=== PATIENT | female | born 1970 | race Caucasian/White ===

== ENCOUNTER 2023-11-19 05:21 | Emergency (ER) | payer OTHER, SELFPAY ==
[2023-11-19 05:22] VITALS: BP 165/86; PULSE 85; RESP 17; TEMP 36.4; O2SAT 98; BMI 33.7
--- NOTE | 2023-11-19 06:24 | ED.RN ---
PT GIVEN SNACK ON ARRIVAL FOR BLOOD SURGAR.
[2023-11-19 06:34] LABS: Bedside Glucose 71 mg/dL (74-106)
[2023-11-19 06:41] LABS: Bedside Glucose 145 mg/dL (74-106)
--- NOTE | 2023-11-19 07:21 | EDS_ITS ---
HPI History of Present Illness Chief Complaint: Hypoglycemia Informant: patient Narrative Narrative: 53-year-old diabetic female presenting to the emergency room chief complaint of hypoglycemia. Patient states that on Saturday she took a new diabetic medication that is a once weekly shot. She states she had difficulty maintaining her blood sugar through the night. She is on both short and long- acting insulin as well as metformin. The patient states that she has not really had this problem in the past. She sees endocrinology through the [facility]. She states that she was having problems thinking clearly and forming her words and knew something was not right. [facility] Medical History Diabetes type 2, controlled Hypothyroidism Rheumatoid arteritis Allergy/AdvReac Type Severity Reaction Status Date / Time potato Allergy Mild Nausea Verified 11/19/23 05:27 Social History Smoking Status: Never smoker ROS ROS ED Constitutional Constitutional ED: Denies chills, fever(s), sweats or weight loss Eyes Eyes: Denies change in vision or diplopia ENT ENT ED: Denies ear pain, rhinorrhea or sore throat Cardiovascular Cardiovascular: Denies chest pain, orthopnea, palpitations or racing heartbeat Respiratory/Chest Respiratory/Chest: Denies cough, dyspnea or orthopnea Gastrointestinal Gastrointestinal: Denies abdominal pain, diarrhea, nausea or vomiting Genitourinary Genitourinary ED: Denies dysuria, hematuria or urinary frequency Musculoskeletal Musculoskeletal: Denies arthralgias or myalgias Integumentary Denies abscess or rash Neurologic Neurologic: Reports other Details: Difficulty with word finding slight confusion ; Denies headache(s) or weakness Psychiatric Psychiatric: Denies anxiety, depression, suicidal ideation or suicidal thoughts Endocrine Endocrinology: Denies polydipsia, polyphagia or polyuria Allergic/Immunologic Allergic/Immunologic ED: Denies mouth swelling, tongue swelling or urticaria EXAM Physical Exam Const Vital Signs: 11/19/23 05:22 11/19/23 05:24 Temperature 97.6 F L Temperature Source Temporal Pulse Rate 85 Respiratory Rate 17 Respiratory Effort Normal Respiratory Pattern Normal Blood Pressure 165/86 H Blood Pressure Mean 112 Pulse Ox 98 Oxygen Delivery Method Room Air Positive well nourished and well developed General Appearance ED: well developed HEENT Reports normocephalic, head/scalp atraumatic and moist mucous membranes Eyes PERRL and EOMs intact bilaterally Neck no lymphadenopathy, supple and no JVD Resp normal respiratory effort and clear to auscultation bilaterally Cardio regular rate, regular rhythm and no murmurs GI normal to inspection, nondistended, normoactive bowel sounds and non-tender Palpation: soft Back/Spine no CVA tenderness and normal ROM Extremity normal to inspection General Extremety ED: Negative for edema General Extremity: Negative for edema Neuro oriented x3 and CN's II-XII intact bilaterally Neuro Narrative: NIH 0 Sensorium / Orientation: alert Motor Exam: strength 5/5 throughout Psych mental status grossly normal Mood & Affect: Negative for depressed or tearful Skin no rashes or lesions noted and no wounds MDM MDM MDM Narrative Medical decision making narrative: Patient's blood sugars improving with oral ingestions. Patient is going to discontinue her short acting insulin and decrease her metformin. She will allow for some permissive hyperglycemia until she can discuss with her ocular care aide. Lab Data Labs: Laboratory Results - last 24 hr 11/19/23 11/19/23 05:26 06:24 POC Glucose 71 L 145 H Discharge Plan Triage Chief Complaint: Hypoglycemia ED Provider: Bernardino Garcia Dx/Rx/DC Orders Clinical Impression: Diabetic hypoglycemia Primary Care Provider: Shanique Bacon NP Referrals: Shanique Bacon NP, GENERAL [employer]UDIES PROGRAM CHAIR-C [Primary Care Provider] - As Needed Activity Restrictions/Additional Instructions: Please contact your ocular care aide. In the interim I recommend allowing some degree of passive hyperglycemia. You may try having a higher protein meal before bedtime. I do think it is reasonable to decrease your metformin today. Disposition Disposition: Home, Self Care Discharge Date/Time: 11/19/23 06:38
--- OUTSIDE RECORDS SUMMARY | 2023-11-20 19:10 | XMS RPT_ITS | CCD ---
Author Name Unknown Address [address] [place] [address] Organization [facility] Care Team Providers Care Cryptologist Name Role Phone Arleen TAPE WEAVER.Jenniffer DUBON Primary Care Provider JENNIFFER ALFONSO Attending Unavailable JENNIFFER ALFONSO Primary Care Unavailable JENNIFFER ALFONSO Primary Care Unavailable PILI RICCI Referring Unavailable JENNIFFER ALFONSO Primary Care Unavailable PILI RICCI Attending Unavailable Allergies Allergy Classification Reported Allergen(s) Allergy Type Date of Onset Reaction(s) Facility (7 sources) Erythromycin; Translations: [ERYTHROMYCIN] Drug Allergy 09-11-2011 Other: See Comments [facility] Work Phone: (3 sources) metFORMIN; Translations: [METFORMIN] Drug Allergy 09-25-2013 Diarrhea [facility] Work Phone: (7 sources) Neomycin; Translations: [NEOMYCIN] Drug Allergy 09-25-2013 Rash [facility] Work Phone: (7 sources) venlafaxine; Translations: [VENLAFAXINE] Drug Allergy 01-05-2014 Other: See Comments [facility] Medications Completed/Discontinued Medications Medication Drug Class(es) Dates Sig (Normalized) Sig (Original) 200 actuat albuterol 0.09 mg/actuat metered dose inhaler (1 source) beta2-Adrenergic Agonist Start: 09-25-2013 End: 10-10-2023 take 1-2 puff(s) by inhalation four times daily as needed for obesity albuterol 90 mcg/actuation aero Indications: Type II or unspecified type diabetes mellitus without mention of complication, uncontrolled , Need for prophylactic vaccination against Streptococcus pneumoniae (pneumococcus) , Obesity (BMI 30.0-34.9) , Health education/counseling Inhale 1-2 Puffs as instructed four times daily as needed. 0 09/25/2013 10/10/2023 Discontinued Problems Active Problems Problem Classification Problem Date Documented Date Episodic/Chronic Asthma (7 sources) Intermittent asthma; Translations: [Mild intermittent asthma, uncomplicated] Onset: 10-10-2023 10-10-2023 Chronic Diabetes mellitus without complication (8 sources) Type 2 diabetes mellitus without complication; Translations: [Type 2 diabetes mellitus without complications] Onset: 09-11-2011 10-10-2023 Chronic Esophageal disorders (2 sources) Gastroesophageal reflux disease without esophagitis; Translations: [Gastro-esophageal reflux disease without esophagitis] Onset: 10-10-2023 10-10-2023 Chronic Essential hypertension (2 sources) Essential hypertension; Translations: [Essential (primary) hypertension] Onset: 10-10-2023 10-10-2023 Chronic Immunizations and screening for infectious disease (9 sources) Patient encounter status; Translations: [Encounter for immunization] Onset: 10-10-2023 10-10-2023 Episodic Nutritional deficiencies (2 sources) Vitamin D deficiency; Translations: [Vitamin D deficiency, unspecified] Onset: 10-10-2023 10-10-2023 Chronic Nutritional deficiencies (2 sources) Vitamin B deficiency; Translations: [Vitamin B deficiency, unspecified] Onset: 10-10-2023 10-10-2023 Episodic Other endocrine disorders (6 sources) Polycystic ovary syndrome; Translations: [Polycystic ovarian syndrome] Onset: 09-11-2011 10-10-2023 Chronic Other endocrine disorders (1 source) Polycystic ovarian syndrome; Translations: [PCOS (polycystic ovarian syndrome)] Onset: 09-11-2011 Chronic Other nutritional; endocrine; and metabolic disorders (5 sources) Obese class I; Translations: [Obesity, unspecified] Onset: 09-25-2013 09-25-2013 Chronic Other screening for suspected conditions (not mental disorders or infectious disease) (5 sources) Cancer cervix screening status; Translations: [Encounter for screening for malignant neoplasm of cervix] Onset: 10-10-2023 10-10-2023 Episodic Rheumatoid arthritis and related disease (7 sources) Rheumatoid arthritis; Translations: [Rheumatoid arthritis, unspecified] Onset: 10-10-2023 10-10-2023 Chronic Thyroid disorders (7 sources) Hypothyroidism; Translations: [Hypothyroidism, unspecified] Onset: 09-11-2011 10-10-2023 Chronic Past or Other Problems Problem Classification Problem Date Documented Da te Episodic/Chronic Other skin disorders (5 sources) Hirsutism; Translations: [Hirsutism] Onset: 09-11-2011 09-11-2011 Episodic Results Test Name Value Interpretation Reference Range Facil ity Vital Signs Date Time Vital Sign Value Performing Clinician Joanna marcus 10-10-2023 14:52-0500 Body height 165.1 cm Jenniffer Alfonso TAPE WEAVER.JAGDISH Work Phone: [facility] 10-10-2023 14:52-0500 Body temperature 98.2 [degF] Jenniffer Alfonso TAPE WEAVER[employer] Work Phone: [facility] 10-10-2023 14:52-0500 Body weight 87 kg Jenniffer Alfonso TAPE WEAVER[employer] Work Phone: [facility] 10-10-2023 14:52-0500 Diastolic blood pressure 72 mm[Hg] Jenniffer Alfonso TAPE WEAVER[employer] Work Phone: [facility] 10-10-2023 14:52-0500 Heart rate 91 /min Jenniffer Alfonso TAPE WEAVER[employer] Work Phone: [facility] 10-10-2023 14:52-0500 Respiratory rate 18 /min Jenniffer Alfonso TAPE WEAVER[employer] Work Phone: [facility] 10-10-2023 14:52-0500 SaO2% (BldA) [Mass fraction] 98 % Jenniffer Alfonso TAPE WEAVER[employer] Work Phone: [facility] 10-10-2023 14:52-0500 Systolic blood pressure 122 mm[Hg] Jenniffer Arleen TAPE WEAVER[employer] Work Phone: [facility] Encounters Encounter Date Encounter Type Care Provider Facility Start: 11-01-2023 Telephone encounter Pili nassar TAPE WEAVER.JAGDISH Work Phone: Endocrinology Plan of Treatment Date Care Activity Detail Author Start: 10-30-2024 Hepatitis B screening Urine Al bumin:Creatinine Ratio [facility] Start: 10-30-2024 Hepatitis B surface antibody level LDL Cholesterol [facility] Start: 10-10-2024 Annual PCP Team Conference Manager zackery Disease Visit Annual PCP Team Chronic Disease Visit [facility] Start: 10-10-2024 Hepatitis B Vaccine (1 of 3 - 3-dose series) Hepatitis B Vaccine (1 of 3 - 3-dose series) [facility] Immunizations Immunization Date Immunization Notes Care Provider Fa cility 10-10-2023 pneumococcal Conjuga te, unspecified formulation Jenniffer Alfonso TAPE WEAVER[employer] Work Phone: [facility] Work Phone: 10-10-2023 pneumococcal (PCV20) vaccine, 20 valent (PREVNAR 20) Jenniffer Alfonso TAPE WEAVER.[employer] Work Phone: [facility] 09-25-2013 pneumococcal polysaccharide vaccine, 23 valent Jenniffer Alfonso TAPE WEAVER.[employer] Work Phone: [facility] Work Phone: Payers Date Payer Category Payer Unknown MMO MMO [employer] PPO [id number] 2023-Present [phone] [address] [place] [address] PPO [id number] 2023 Unknown [id number] Social History Date Type Detail Facility Start: 09-11-2011 [facility] Work Phone: History of tobacco use Current smoker [facility] Work Phone: Start: 09-11-2011 Tobacco use and exposure Smokeless tobacco non-user [facility] Work Phone: Start: 10-10-2023 End: 11-01-2023 Alcohol intake Current drinker of alcohol (finding) [facility] Start: 10-10-2023 End: 10-30-2023 History of Social function [facility] Start: 10-10-2023 End: 10-30-2023 Tobacco use panel [facility] National Score (1-100), lower number is lower risk 99 [facility] Start: 1970 Sex Assigned At Not on file C [facility] Medical Equipment Procedure Code Equipment Code Equipment Origin al Text Equipment Identifier Dates Start: 09-11-2011 End: 10-10-2023 Note 10-31-2023 Telephone Encounter - Coni Pedraza - 10/31/2023 4:12 PM EST Note Date & Type Note Facility 10-31-2023 Miscellaneous Notes Formattin g of this note might be different from the original. Phoned [facility] pharmacy due to conflicting messages regarding prescriptions. Patients insulin did not require a PA as noted in another message but was covered under a different formulary. Pharmacist changed to covered med. Prior Authorization was completed for scott. Cover My Meds tate [id number] Last office visit notes faxed to [facility] at that time. Coni Pedraza MA documented in this encounter [facility] Note 10-31-2023 Telephone Encounter - Nerissa Donaldson RN - 10/31/2023 11:51 AM EST Note Date & Type Note Facility 10-31-2023 Miscellaneous Notes Formattin g of this note might be different from the original. message sent to Pt. Nerissa Donaldson RN October 31, 2023 11:51 AM documented in this encounter [facility] Progress note 10-30-2023 Note Date & Type Note Facility 10-30-2023 Note HNO ID: [id number] Author: Pili Ricci APRN.[employer] Service: ? Author Type: Nurse Practitioner Type: Progress Notes Filed: 10/30/2023 8:49 AM Note Text: NEW CONSULT OFFICE PROGRESS NOTE Reason for Consultation: DM Type 2 Referring Physician: SELF My final recommendations will be communicated back to the requesting physician by way of shared Medical record or letter via [place] mail. HISTORY OF PRESENT ILLNESS; Henrietta Brewer is a 53 year old FEMALE is presenting as a new patient to me regarding DM Type 2. [place] the past 8 [place]. [place] 20[place] Is still re-establishing her care with new providers. She was initially diagnosed with diabetes in 2008. 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 The patient has no known microvascular complications of diabetes. Henrietta has no know macrovascular complications of diabetes.. DM Education Yes Knows how to carb count Yes DIETARY HISTORY: Breakfast: skip and coffee w creamer and splenda Lunch variable, wrap or salad (at school, works in school) Dinner proteins, (40-45 grams of carbs per meal) whole wheat pasta, or brown rice, sweet potatoes Snacks none - occ mANDm Drinks water and coffee Exercise: work, 15k steps a day CURRENT DM MEDS AMARYL 2 mg 1 tab BID (6 mg daily) METFORMIN 1000 BID TRESIBA 30 units daily (pt increased to 45 units in the past 3 weeks) TRULICITY 3 mg weekly injection SMBG Type of Monitor: Other Frequency of Monitorin times a day BG Values: 200-400 during illness Values over past week: Highest ; Lowest Hypoglycemia: no Diet: Low carbohydrate Exercise: walks 15k steps daily during work DM REVIEW OF SYSTEMS Last Eye Exam : due Last Podiatry Exam: due Cardiorespiratory: negative, denies chest pain, pressure Claudication: no Dyslipidemia: Yes, controlled on medication High Blood Pressure: Yes, controlled on medication CURRENT LABS NONE - ordered not completed by patient. TO DO ON WAY OUT TODAY PAST MEDICAL HISTORY Diagnosis Date Asthma Ex - Smoker Hypothyroidism Infertility, female Daughter birthed by surrogate female Leg cramps RA (rheumatoid arthritis) (HCC) On EFFEXOR / Pt. indicates side effect of drug. (+) Family history of RA Stress bladder incontinence, female Type II or unspecified type diabetes mellitus without mention of complication, not stated as uncontrolled PAST SURGICAL HISTORY Procedure Laterality Date NONE FAMILY HISTORY Problem Relation Age of Onset Ovarian cancer Mother 20 Hypertension Father Hypertension Brother Diabetes Maternal Grandmother Heart Maternal Grandmother No Known Problems Maternal Grandfather Heart Paternal Grandmother Diabetes Paternal Grandmother Diabetes Paternal Aunt Arthritis Other Rheumatoid Arthritis in family members other (hypothy [Other]) Other Social History Tobacco Use Smoking status: Former Smokeless tobacco: Never Substance Use Topics Alcohol use: Yes Current Outpatient Medications Medication Sig levothyroxine (SYNTHROID) 100 mcg tablet Take 100 mcg by mouth daily before breakfast. valsartan (DIOVAN) 80 mg tablet Take 80 mg by mouth once daily. atorvastatin (LIPITOR) 20 mg tablet Take 20 mg by mouth once daily. glimepiride (AMARYL) 2 mg tablet Take 2 mg by mouth two times a day with meals. metFORMIN (GLUCOPHAGE) 1,000 mg tablet Take 1,000 mg by mouth two times a day with meals. insulin degludec (TRESIBA FLEXTOUCH U-100) 100 unit/mL (3 mL) injection pen Inject subcutaneously daily at bedtime. 300 international unit(s) pen 30units methotrexate 2.5 mg tablet Take 7.5 mg by mouth two times a week. folic acid 1 mg tablet Take 1 mg by mouth once daily. hydrOXYchloroQUINE (PLAQUENIL) 200 mg tablet Take by mouth once daily. celecoxib (CELEBREX) 200 mg capsule Take 200 mg by mouth once daily. tacrolimus IR (PROGRAF) 1 mg capsule Take 1 mg by mouth two times a day. dulaglutide (TRULICITY) 3 mg/0.5 mL pen injector Inject 3 mg subcutaneously one time a week. Dexlansoprazole (DEXILANT) 30 mg CpDM Take 1 capsule by mouth once daily. No current facility-administered medications for this visit. ALLERGIES Allergen Reactions E-Mycin [Erythromyc* Other: See Comments Itching, stomach upset Effexor [Venlafaxin* Other: See Comments Onset of arthritis Metformin Diarrhea Incapacitating Diarrhe and cramping Neomycin Rash REVIEW OF SYSTEMS - POSITIVES IN BOLD GENERAL:No weight loss, malaise or fevers HEENT:Negative for frequent (more content not included)... [facility] Progress note 10-10-2023 Note Date & Type Note Facility 10-10-2023 Note HNO ID: [id number] Author: Jenniffer Aflonso APRN.[employer] Service: ? Author Type: Nurse Practitioner Type: Progress Notes Filed: 10/10/2023 11:06 PM Note Text: This note was created using FIXOriter. Subjective Henrietta Brewer is a 53 year old female here today to establish care. PMH DM, HTN, HLD, hypothyroidism, RA, asthma, PCOS. [place] from [place] the [place]. She needs referral to specialists. DM: Type 2, Dx 2007. States she was having extreme thrist. Reports she was noted had A1C of 13.4%. states she was started insulin immediately. She is taking Trulicity 3 mg weekly, Tresiba 30 units daily, metformin 1000 mg twice, glimepiride 2 mg twice a day. She needs referral to Endo Hypothyroidism: Dx 2007-. She is taking levothyroixine 100 mcg. She takes this on an empty stomach. RA: Dx 2008, chronic, stable she is taking Plaquenil, methotrexate and celebrex for this. Asthma: Dx as a child. She reports it has been controlled. She uses albuterol as needed. Reports at most once every 2-3 months. HLD: she is taking atorvastatin 20 mg daily. Tolerates well. HTN: she is taking valsartan 80 mg daily. Preventative: she would like her pneumonia vaccine today. Reports she had bone density in [place]. Reports normal. She has never had colonoscopy. ALLERGIES Allergen Reactions E-Mycin [Erythromyc* Other: See Comments Itching, stomach upset Effexor [Venlafaxin* Other: See Comments Onset of arthritis Metformin Diarrhea Incapacitating Diarrhe and cramping Neomycin Rash Current Outpatient Medications Medication Sig Dispense Refill levothyroxine (SYNTHROID) 100 mcg tablet Take 100 mcg by mouth daily before breakfast. valsartan (DIOVAN) 80 mg tablet Take 80 mg by mouth once daily. atorvastatin (LIPITOR) 20 mg tablet Take 20 mg by mouth once daily. sitaGLIPtin phosphate (JANUVIA) 100 mg tablet Take 100 mg by mouth once daily. glimepiride (AMARYL) 2 mg tablet Take 2 mg by mouth two times a day with meals. metFORMIN (GLUCOPHAGE) 1,000 mg tablet Take 1,000 mg by mouth two times a day with meals. insulin degludec (TRESIBA FLEXTOUCH U-100) 100 unit/mL (3 mL) injection pen Inject subcutaneously daily at bedtime. 300 international unit(s) pen 30units dulaglutide (TRULICITY) 3 mg/0.5 mL pen injector Inject 3 mg subcutaneously one time a week. methotrexate 2.5 mg tablet Take 7.5 mg by mouth two times a week. folic acid 1 mg tablet Take 1 mg by mouth once daily. hydrOXYchloroQUINE (PLAQUENIL) 200 mg tablet Take by mouth once daily. celecoxib (CELEBREX) 200 mg capsule Take 200 mg by mouth once daily. lansoprazole (PREVACID) 30 mg capsule Take 30 mg by mouth once daily. tacrolimus IR (PROGRAF) 1 mg capsule Take 1 mg by mouth two times a day. DULoxetine (CYMBALTA) 20 mg capsule Take 20 mg by mouth once daily. (Patient not taking: Reported on 10/10/2023) insulin detemir (LEVEMIR FLEXPEN) 100 unit/mL (3 mL) inpn injection Inject 34 Units subcutaneously daily at bedtime. 250.02 (Patient not taking: Reported on 10/10/2023) 0 trospium (SANCTURA) 20 mg tablet Take 1 tablet by mouth twice daily. (Patient not taking: Reported on 10/10/2023) 60 tablet 6 nortriptyline 10 mg capsule Take 10-20 mg by mouth at bedtime as needed. (Patient not taking: Reported on 10/10/2023) albuterol 90 mcg/actuation aero Inhale 1-2 Puffs as instructed four times daily as needed. (Patient not taking: Reported on 10/10/2023) 0 insulin needles, DISPOSABLE, (PEN NEEDLE) 31 X 04/09 [facility] Ndle use as directed (Patient not taking: Reported on 10/10/2023) 100 Each 11 lisinopril 10 mg ORAL tablet Take 10 mg by mouth once daily. (Patient not taking: Reported on 10/10/2023) Levothyroxine 150 mcg ORAL Cap Take 150 mcg by mouth once daily. (Patient not taking: Reported on 10/10/2023) 90 capsule 4 blood sugar diagnostic (FREESTYLE LITE STRIPS) [facility] test strip TEST BLOOD SUGARS 6-7 TIMES DAILY (Patient not taking: Reported on 10/10/2023) 200 Each 11 insulin aspart (NOVOLOG) 100 unit/mL SUBCUTANEOUS Soln Inject subcutaneously. up to 20 units at meals (Patient not taking: Reported on 10/10/2023) 2 Vial 11 Aspirin 81 mg ORAL Tab Take 81 mg by mouth once daily. (Patient not taking: Reported on 10/10/2023) Lancets [facility] lancets Use as instructed (Patient not taking: Reported on 10/10/2023) 100 Each 11 No current facility-administered medications for this visit. ACTIVE PROBLEM LIST Pcos (Polycystic Ovarian Syndrome) Hirsutism Type II Or Unspecified Type Diabetes Mellitus Without Mention of Complication, Not Stated As Uncontrolled Hypothyroidism Obesity (Bmi 30.0-34.9) Ra (Rheumatoid Arthritis) ([facility]) Asthma PAST MEDICAL HISTORY Diagnosis Date Asthma Ex - Smoker Hypothyroidism Infertility, female Daughter birthed by surrogate female Leg cramps RA (rheumatoid arthritis) ([facility]) On EFFEXOR / Pt. indicates side effect of drug. (+) Family history of RA Stress bladder incontinence (more content not included)... [facility] Instructions 10-10-2023 Patient Instructions Note Date & Type Note Facility 10-10-2023 Instructions Jenniffer Alfonso, TAPE WEAVER.[employer] - 10/10/2023 4:07 PM EST ASSESSMENT/PLAN: 1. Type 2 diabetes mellitus without complication, without long-term current use of insulin ([facility]) - ICD9: 250.00, ICD10: E11.9 (primary diagnosis) - Control undetermined, due for labs - Continue current medications - Counseled on healthy diet and regular exercise - Discussed need for and benefit of weight loss. BMI 31.92 kg/(m^2) - Discussed diabetic education issues of diabetes complications and monitoring required, hypoglycemic/hyperglycemic symptoms, medication-specific side effects and monitoring, and diabetic sick day rules - CONSULT TO ENDOCRINOLOGY - CBC - COMP METABOLIC PANEL - ALBUMIN/CREAT RATIO RND UR - HGB A1C - DULAGLUTIDE 3 MG/0.5 ML SUBCUTANEOUS PEN INJECTOR - ECG COMPLETE 2. Primary hypertension - ICD9: 401.9, ICD10: I10 - Controlled - Continue current medications - Recommend home blood pressure monitoring, to bring results to next visit - Encouraged sodium restriction, DASH or Mediterranean diet - Recommend regular aerobic exercise - Discussed need for and benefit of weight loss. BMI 31.92 kg/(m^2) - ECG COMPLETE 3. Hypothyroidism, unspecified type - ICD9: 244.9, ICD10: E03.9 - Instructed patient on importance of taking on an empty stomach either first thing in the morning or at bedtime. - check TSH and T4/FTI today - continue current dose of Synthroid 0.100 mg - CONSULT TO ENDOCRINOLOGY - TSH BLD - T4 FREE/FREE THYROX 4. Rheumatoid arthritis, involving unspecified site, unspecified whether rheumatoid factor present (HCC) - ICD9: 714.0, ICD10: M06.9 - Chronic stable - referral to Rheum, and current medications - CONSULT TO RHEUM/IMMUN DISEASE 5. Intermittent asthma, unspecified asthma severity, unspecified whether complicated - ICD9: 493.90, ICD10: J45.20 - Mild intermittent asthma stable - Continue current medications - Avoidance of triggers recommended 6. PCOS (polycystic ovarian syndrome) - ICD9: 256.4, ICD10: E28.2 - CONSULT TO NAIL PULLER 7. Vitamin D deficiency - ICD9: 268.9, ICD10: E55.9 - VITAMIN D 25 HYDROXY 8. Vitamin B deficiency - ICD9: 266.9, ICD10: E53.9 - VITAMIN B12 BLOOD 9. Encounter for immunization - ICD9: V03.89, ICD10: Z23 - PNEUMOCOCCAL VACCINE (PREVNAR 20) 10. Encounter for screening mammogram for malignant neoplasm of breast - ICD9: V76.12, ICD10: Z12.31 - NANDA SCREENING 11. Colon cancer screening - ICD9: V76.51, ICD10: Z12.11 - CONSULT TO GENERAL SURGERY 12. Screening for cervical cancer - ICD9: V76.2, ICD10: Z12.4 - CONSULT TO NAIL PULLER 13. Screening for lipid disorders - ICD9: V77.91, ICD10: Z13.220 - LIPID PANEL BASIC 14. Screening for HIV (human immunodeficiency virus) - ICD9: V73.89, ICD10: Z11.4 - HIV 1 2 COMBO(AG/AB),WITH REFLEX TO DIFFERENTIATION 15. Encounter for hepatitis C screening test for low risk patient - ICD9: V73.89, ICD10: Z11.59 - HEPATITIS C ANTIBODY IA WITH CONFIRMATION 16. Encounter for medical examination to establish care - ICD9: V70.9, ICD10: Z00.00 Jenniffer Alfonso APRN.[employer] documented in this encounter [facility] History of Present illness Narrative 10-10-2023 Jenniffer Alfonso APRN.JAGDISH - 10/10/2023 3:29 PM EST Note Date & Type Note Facility 10-10-2023 History of Presen t illness Narrative This note was created using FIXOriter. Subjective Henrietta Brewer is a 53 year old female here today to establish care. PMH DM, HTN, HLD, hypothyroidism, RA, asthma, PCOS. [place]. She needs referral to specialists. DM: Type 2, Dx 2007. States she was having extreme thrist. Reports she was noted had A1C of 13.4%. states she was started insulin immediately. She is taking Trulicity 3 mg weekly, Tresiba 30 units daily, metformin 1000 mg twice, glimepiride 2 mg twice a day. She needs referral to Endo Hypothyroidism: Dx 2007-. She is taking levothyroixine 100 mcg. She takes this on an empty stomach. RA: Dx 2008, chronic, stable she is taking Plaquenil, methotrexate and celebrex for this. Asthma: Dx as a child. She reports it has been controlled. She uses albuterol as needed. Reports at most once every 2-3 months. HLD: she is taking atorvastatin 20 mg daily. Tolerates well. HTN: she is taking valsartan 80 mg daily. Preventative: she would like her pneumonia vaccine today. Reports she had bone density in [place]. Reports normal. She has never had colonoscopy. ALLERGIES Allergen Reactions E-Mycin [Erythromyc* Other: See Comments Itching, stomach upset Effexor [Venlafaxin* Other: See Comments Onset of arthritis Metformin Diarrhea Incapacitating Diarrhe and cramping Neomycin Rash Current Outpatient Medications Medication Sig Dispense Refill levothyroxine (SYNTHROID) 100 mcg tablet Take 100 mcg by mouth daily before breakfast. valsartan (DIOVAN) 80 mg tablet Take 80 mg by mouth once daily. atorvastatin (LIPITOR) 20 mg tablet Take 20 mg by mouth once daily. sitaGLIPtin phosphate (JANUVIA) 100 mg tablet Take 100 mg by mouth once daily. glimepiride (AMARYL) 2 mg tablet Take 2 mg by mouth two times a day with meals. metFORMIN (GLUCOPHAGE) 1,000 mg tablet Take 1,000 mg by mouth two times a day with meals. insulin degludec (TRESIBA FLEXTOUCH U-100) 100 unit/mL (3 mL) injection pen Inject subcutaneously daily at bedtime. 300 international unit(s) pen 30units dulaglutide (TRULICITY) 3 mg/0.5 mL pen injector Inject 3 mg subcutaneously one time a week. methotrexate 2.5 mg tablet Take 7.5 mg by mouth two times a week. folic acid 1 mg tablet Take 1 mg by mouth once daily. hydrOXYchloroQUINE (PLAQUENIL) 200 mg tablet Take by mouth once daily. celecoxib (CELEBREX) 200 mg capsule Take 200 mg by mouth once daily. lansoprazole (PREVACID) 30 mg capsule Take 30 mg by mouth once daily. tacrolimus IR (PROGRAF) 1 mg capsule Take 1 mg by mouth two times a day. DULoxetine (CYMBALTA) 20 mg capsule Take 20 mg by mouth once daily. (Patient not taking: Reported on 10/10/2023) insulin detemir (LEVEMIR FLEXPEN) 100 unit/mL (3 mL) inpn injection Inject 34 Units subcutaneously daily at bedtime. 250.02 (Patient not taking: Reported on 10/10/2023) 0 trospium (SANCTURA) 20 mg tablet Take 1 tablet by mouth twice daily. (Patient not taking: Reported on 10/10/2023) 60 tablet 6 nortriptyline 10 mg capsule Take 10-20 mg by mouth at bedtime as needed. (Patient not taking: Reported on 10/10/2023) albuterol 90 mcg/actuation aero Inhale 1-2 Puffs as instructed four times daily as needed. (Patient not taking: Reported on 10/10/2023) 0 insulin needles, DISPOSABLE, (PEN NEEDLE) 31 X 04/09 Misc Ndle use as directed (Patient not taking: Reported on 10/10/2023) 100 Each 11 lisinopril 10 mg ORAL tablet Take 10 mg by mouth once daily. (Patient not taking: Reported on 10/10/2023) Levothyroxine 150 mcg ORAL Cap Take 150 mcg by mouth once daily. (Patient not taking: Reported on 10/10/2023) 90 capsule 4 blood sugar diagnostic (FREESTYLE LITE STRIPS) [facility] test strip TEST BLOOD SUGARS 6-7 TIMES DAILY (Patient not taking: Reported on 10/10/2023) 200 Each 11 insulin aspart (NOVOLOG) 100 unit/mL SUBCUTANEOUS Soln Inject subcutaneously. up to 20 units at meals (Patient not taking: Reported on 10/10/2023) 2 Vial 11 Aspirin 81 mg ORAL Tab Take 81 mg by mouth once daily. (Patient not taking: Reported on 10/10/2023) Lancets [facility] lancets Use as instructed (Patient not taking: Reported on 10/10/2023) 100 Each 11 No current facility-administered medications for this visit. ACTIVE PROBLEM LIST Pcos (Polycystic Ovarian Syndrome) Hirsutism Type II Or Unspecified Type Diabetes Mellitus Without Mention of Complication, Not Stated As Uncontrolled Hypothyroidism Obesity (Bmi 30.0-34.9) Ra (Rheumatoid Arthritis) ([facility]) Asthma PAST MEDICAL HISTORY Diagnosis Date Asthma Ex - Smoker Hypothyroidism Infertility, female Daughter birthed by surrogate female Leg cramps RA (rheumatoid arthritis) ([facility]) On EFFEXOR / Pt. indicates side effect of drug. (+) Family history of RA Stress bladder incontinence, female Type II or unspecified type diabetes mellitus without mention of complication, not stated as uncontrolled PAST SURGICAL HISTORY Procedure Laterality Date NONE Social History Tobacco Use Smoking status: Former Smokeless tobacco: Never Substance Use Topics Alcohol use: Yes Family History Problem Relation Age of Onset Ovarian cancer Mother Hypertension Father Hypertension Brother Diabetes Maternal Grandmother Heart Maternal Grandmother Heart Paternal Grandmother Diabetes Paternal Grandmother Diabetes Paternal Aunt Arthritis Other Rheumatoid Arthritis in family members other (hypothy [Other]) Other Review of Systems Constitutional: Negative for activity change, appetite change, chills, diaphoresis, fatigue, fever and unexpected weight change. HENT: Positive for congestion. Negative for ear pain, sinus pressure, sinus pain, sore throat and tinnitus. Right ear pressure, hot feeling Respiratory: Negative for cough, chest tightness, shortness of breath and wheezing. Cardiovascular: Negative for chest pain, palpitations and leg swelling. Gastrointestinal: Negative for diarrhea, nausea and vomiting. Occasional vomiting when sugar is low. Musculoskeletal: Negative for arthralgias. Denies pain Neurological: Negative for dizziness and headaches. Objective BP 122/72 (BP Site: Left Arm, BP Position: Sitting, BP Cuff Size: Regular Adult) Pulse 91 Temp 36.8 C (98.2 F) (Oral) Resp 18 Ht 165.1 cm (5' 5 ) Wt 87 kg (191 lb 12.8 oz) LMP 12/15/2013 SpO2 98% BMI 31.92 kg/m Physical Exam Constitutional: General: She is not in acute distress. Appearance: Normal appearance. She is obese. She is not ill-appearing. HENT: Head: Normocephalic and atraumatic. Right Ear: Tympanic membrane, ear canal and external ear normal. Left Ear: Tympanic membrane, ear canal and external ear normal. Nose: Nose normal. No congestion or rhinorrhea. Neck: Vascular: Carotid bruit present. Cardiovascular: Rate and Rhythm: Normal rate and regular rhythm. Pulses: Normal pulses. Heart sounds: Normal heart sounds. Pulmonary: Effort: Pulmonary effort is normal. No respiratory distress. Breath sounds: Normal breath sounds. No wheezing or rhonchi. Abdominal: General: Bowel sounds are normal. Palpations: Abdomen is soft. Musculoskeletal: Cervical back: Normal range of motion and neck supple. Lymphadenopathy: Cervical: No cervical adenopathy. Skin: General: Skin is warm and dry. Neurological: General: No focal deficit present. Mental Status: She is alert and oriented to person, place, and time. Psychiatric: Mood and Affect: Mood normal. Behavior: Behavior normal. Thought Content: Thought content normal. ASSESSMENT/PLAN: 1. Primary hypertension - ICD9: 401.9, ICD10: I10 (primary diagnosis) - Controlled - Continue current medications - Recommend home blood pressure monitoring, to bring results to next visit - Encouraged sodium restriction, DASH or Mediterranean diet - Recommend regular aerobic exercise - Discussed need for and benefit of weight loss. BMI 31.92 kg/(m^2) - Reviewed risks of hypertension and principles of treatment - ECG COMPLETE 2. Encounter for medical examination to establish care - ICD9: V70.9, ICD10: Z00.00 - Counseled on healthy diet and regular exercise - Calcium intake with supplements or by diet of 1000 mg/day for under 50, 8059-0506 mg/day for 50+ - Discussed need and benefit for weight loss. BMI 31.92 kg/(m^2) - Colorectal cancer screening recommended - agrees to Colonoscopy - Mammogram ordered - exam recommended once yearly - Depression screening tool completed and reviewed with patient. Based on score and interview, patient is not at risk for depression and recommended no further intervention at this time. - Patient was counseled [id number] by myself (the billing provider) for the following immunizations and vaccine components, including side effects: Pneumococcal . Patient consents for immunization and understands risks and benefits. A VIS sheet on each immunization was given to the patient. 3. Type 2 diabetes mellitus without complication, without long-term current use of insulin (HCC) - ICD9: 250.00, ICD10: E11.9 - Control undetermined, due for labs - Continue current medications - Blood glucose monitoring on a four times daily schedule - Referral to Endocrinology for further diabetes management - Counseled on healthy diet and regular exercise - Discussed need for and benefit of weight loss. BMI 31.92 kg/(m^2) - Discussed diabetic education issues of diabetes complications and monitoring required, hypoglycemic/hyperglycemic symptoms, medication-specific side effects and monitoring, and diabetic sick day rules - Follow up in 3 months, sooner should any other issues arise. - CONSULT TO ENDOCRINOLOGY - CBC - COMP METABOLIC PANEL - ALBUMIN/CREAT RATIO RND UR - HGB A1C - DULAGLUTIDE 3 MG/0.5 ML SUBCUTANEOUS PEN INJECTOR - ECG COMPLETE 4. Hypothyroidism, unspecified type - ICD9: 244.9, ICD10: E03.9 - Instructed patient on importance of taking on an empty stomach either first thing in the morning or at bedtime. - check TSH and T4/FTI today - continue current dose of Synthroid 0.100 mg - CONSULT TO ENDOCRINOLOGY - TSH BLD - T4 FREE/FREE THYROX 5. Rheumatoid arthritis, involving unspecified site, unspecified whether rheumatoid factor present (HCC) - ICD9: 714.0, ICD10: M06.9 - Chronic, continue current medications. Referral to Rheum for management - CONSULT TO RHEUM/IMMUN DISEASE 6. Intermittent asthma, unspecified asthma severity, unspecified whether complicated - ICD9: 493.90, ICD10: J45.20 - Mild intermittent asthma stable - Continue current medications - Avoidance of triggers recommended 7. PCOS (polycystic ovarian syndrome) - ICD9: 256.4, ICD10: E28.2 - stable. Referral to [facility] for management and routine Gynecological care - CONSULT TO NAIL PULLER 8. Vitamin D deficiency - ICD9: 268.9, ICD10: E55.9 - VITAMIN D 25 HYDROXY 9. Vitamin B deficiency - ICD9: 266.9, ICD10: E53.9 - VITAMIN B12 BLOOD 10. Encounter for immunization - ICD9: V03.89, ICD10: Z23 - PNEUMOCOCCAL VACCINE (PREVNAR 20) 11. Encounter for screening mammogram for malignant neoplasm of breast - ICD9: V76.12, ICD10: Z12.31 - NANDA SCREENING 12. Colon cancer screening - ICD9: V76.51, ICD10: Z12.11 - CONSULT TO GENERAL SURGERY 13. Screening for cervical cancer - ICD9: V76.2, ICD10: Z12.4 - CONSULT TO NAIL PULLER 14. Screening for lipid disorders - ICD9: V77.91, ICD10: Z13.220 - LIPID PANEL BASIC 15. Screening for HIV (human immunodeficiency virus) - ICD9: V73.89, ICD10: Z11.4 - HIV 1 2 COMBO(AG/AB),WITH REFLEX TO DIFFERENTIATION 16. Encounter for hepatitis C screening test for low risk patient - ICD9: V73.89, ICD10: Z11.59 - HEPATITIS C ANTIBODY IA WITH CONFIRMATION 17. Gastroesophageal reflux disease without esophagitis - ICD9: 530.81, ICD10: K21.9 - Discussed lifestyle modifications including losing weight, limiting caffeine, no meals three hours before sleep, and head of bed elevation - Continue treatment with Dexilant daily - DEXLANSOPRAZOLE 30 MG CAPSULE,BIPHASE DELAYED RELEASE Jenniffer Alfonso APRN.JAGDISH I spent a total of 65 minutes on the date of the service which included preparing to see the patient, [id number] patient care, completing clinical documentation, obtaining and/or reviewing separately obtained history, performing a medically appropriate examination, counseling and educating the patient/family/caregiver, and ordering medications, tests, or procedures. documented in this encounter [facility] Evaluation note Note Date & Type Note Facility documented in this encounter [facility] Reason for referral (narrative) Outpatient Procedure (Routine) - Pending Review Note Date & Type Note Facility Referral ID Status Reason Start Date Expiration Date Visits Requested Visits Authorized [id number] Pending Review Auto-Generat ed Referral 3 10/09/2024 1 1 * Consult, Test, Treat (Routine) - Authorized Specialty Diagnoses / Procedures Referred By Contact Referred To Contact Rheumatology / [facility] DEPARTMENT Diagnoses Rheumatoid arthritis, involving unspecified site, unspecified whether rheumatoid factor present (HCC) Procedures CONSULT TO RHEUM/IMMUN DISEASE OFFICE/OUTPATIENT [facility] 60-74 MINUTES Jenniffer Alfonso APRN.[employer] [address] [place] [address] July Dave [address] [place] [id number] Referral ID Status Reason Start Date Expiration Date Visits Requested Visits Authorized [id number] Authorized PCP Requested Referral 3 10/09/2024 1 1 * Consult, Test, Treat (Routine) - Authorized Specialty Diagnoses / Procedures Referred By Contact Referred To Contact Endocrinology / [facility] DEPARTMENT Diagnoses Hypothyroidism, unspecified type Type 2 diabetes mellitus without complication, without long-term current use of insulin (HCC) Procedures CONSULT TO ENDOCRINOLOGY OFFICE/OUTPATIENT [facility] 60-74 MINUTES Jenniffer Alfonso APRN.[employer] [address] [place] [address] Ander Allen MD [address] [place] [address], [address] [place] [address] Referral ID Status Reason Start Date Expiration Date Visits Requested Visits Authorized [id number] Authorized PCP Requested Referral 3 10/09/2024 1 1 * Consult, Test, Treat (Routine) - Authorized Specialty Diagnoses / Procedures Referred By Contac t Referred To Contact General Surgery / [facility] DEPARTMENT Diagnoses Colon cancer screening Procedures CONSULT TO GENERAL SURGERY OFFICE/OUTPATIENT [facility] 60-74 MINUTES Jenniffer Alfonso APRN.[employer] [address] [place] [address] Luci Snell MD [address] [place] [address] Referral ID Status Reason Start Date Expiration Date Visits Requested Visits Authorized [id number] Authorized PCP Requested Referral 3 10/09/2024 1 1 * Consult, Test, Treat (Routine) - Authorized Specialty Diagnoses / Procedures Referred By Syd faust Referred To Contact [facility] Diagnoses Screening for cervical cancer PCOS (polycystic ovarian syndrome) Procedures CONSULT TO NAIL PULLER OFFICE/OUTPATIENT [facility] 60-74 MINUTES Jenniffer Alfonso APRN.[employer] [address] [place] [address] Coni Sheth MD [address] [address] Referral ID Status Reason Start Date Expiration Date Visits Requested Visits Authorized [id number] Authorized PCP Requested Referral Auto-Generate d Referral 3 10/09/2024 1 1 * Diagnostic Procedure Only (Routine) - Pending Review Specialty Diagnoses / Procedures Referred By Syd faust Referred To Contact [facility] Diagnoses Encounter for screening mammogram for malignant neoplasm of breast Procedures NANDA SCREENING SCREENING MAMMOGRAPHY BI 2-VIEW BREAST INC CAD Jenniffer Alfonso APRN.[employer] [address] [place] [address] [facility] [place] [address] Referral ID Status Reason Start Date Expiration Date Visits Requested Visits Authorized [id number] Pending Review Auto-Generat ed Referral 3 11/08/2024 1 1 [facility] Summary Purpose Family History No Family History Records FoundNo Family History Records Found Advance Directives No Advanced Directives Records FoundNo Advanced Directives Records Found Additional Source Comments Source Comments (unrecognize d section and content) In the event this informatio n is protected by the Federal Confidentiality of Alcohol and Drug Abuse Patient Records regulations: The Federal rules restrict any use of the information to criminally investigate or prosecute any alcohol or drug abuse patient.[facility] the event this information is protected by the Federal Confidentiality of Alcohol and Drug Abuse Patient Records regulations: The Federal rules restrict any use of the information to criminally investigate or prosecute any alcohol or drug abuse patient.[facility] the event this information is protected by the Federal Confidentiality of Alcohol and Drug Abuse Patient Records regulations: The Federal rules restrict any use of the information to criminally investigate or prosecute any alcohol or drug abuse patient.[facility] the event this information is protected by the Federal Confidentiality of Alcohol and Drug Abuse Patient Records regulations: The Federal rules restrict any use of the information to criminally investigate or prosecute any alcohol or drug abuse patient.[facility] the event this information is protected by the Federal Confidentiality of Alcohol and Drug Abuse Patient Records regulations: The Federal rules restrict any use of the information to criminally investigate or prosecute any alcohol or drug abuse patient.[facility] Reason for Visit (unrecogniz ed section and content) Specialty Diagnoses / Procedures Referred By Syd faust Referred To Contact Internal Medicine / INTERNAL MEDICINE Diagnoses new pt Procedures 4C NEW Self Jenniffer Alfonso, FELISA.[employer] [address] [place] [address] Referral ID Status Reason Start Date Expiration Date Visits Requested Visits Authorized [id number] Authorized Patient Cleared - Qualified 100% FAS 3 01/07/2024 99 99 Reason Comments Med Change Request Reason Comments Medication Problem Prescription authori zations Reason Comments Medication Problem Care Teams (unrecognized sec tion and content) Cryptologist Relationship Specialty Start Date End Date Jenniffer Alfonso APRN.[employer] [address] [place] [address] PCP - General Internal Medicine 10/10/23 Cryptologist Relationship Specialty Start Date End Date Jenniffer Alfonso APRN.[employer] [address] [place] [address] PCP - General Internal Medicine 10/10/23 Cryptologist Relationship Specialty Start Date End Date Jenniffer Alfonso APRN.[employer] [address] [place] [address] PCP - General Internal Medicine 10/10/23 INFORMATION SOURCE (unrecogn ized section and content) DATE CREATED AUTHOR AUTHOR'S MICA ATSHIRA 11/14/2023 [facility] FOR RECORDS PERTAINING TO PATIENTS WHO ARE OR HAVE BEEN ENROLLED IN A CHEMICAL DEPENDENCY/SUBSTANCEABUSE PROGRAM, SOME INFORMATION MAY BE OMITTED. This clinical summary was aggregated from multiple sources. Caution should be exercised in using it in the provision of clinical care. This summary normalizes information from multiple sources, and as a consequence, information in this document may materially change the coding, format and clinical context of patient data. In addition, data may be omitted in some cases. CLINICAL DECISIONS SHOULD BE BASED ON THE PRIMARY CLINICAL RECORDS. [facility]. provides no warranty or guarantee of the accuracy or completeness of information in this document.
== END 2023-11-19 06:38 | disposition home or self-care (01) ==
PROVIDERS: Emergency Provider Emergency Medicine; PCP Nurse Practitioner Adult Health; Visit Provider Emergency Medicine
DX: E11.649 Type 2 diabetes mellitus with hypoglycemia without coma (principal); Z79.4 Long term (current) use of insulin; Z79.84 Long term (current) use of oral hypoglycemic drugs
CPT/HCPCS: 82962; 99282

== ENCOUNTER 2024-01-14 21:02 | Emergency (ER) | payer OTHER, SELFPAY ==
[2024-01-14 21:03] VITALS: BP 144/71; PULSE 89; RESP 14; TEMP 36.8; O2SAT 100; BMI 32.2
--- NOTE | 2024-01-14 21:23 | EDS_ITS ---
HPI History of Present Illness Chief Complaint: Hypoglycemia Informant: patient Narrative Narrative: Patient presents secondary to low blood sugars. She is diabetic and did take her injection of Mounjaro this morning. She is also on some long-acting insulin. Tonight after dinner her blood sugar was dropping. When it dropped to 80 she started eating some snacks but it dropped as low as 57. She did drink juice and ate some peanut butter crackers. Her blood sugar currently is back up into the 130s. She does report feeling slightly nauseated. [facility] Medical History Diabetes type 2, controlled Hypothyroidism Rheumatoid arteritis Allergy/AdvReac Type Severity Reaction Status Date / Time potato Allergy Mild Nausea Verified 01/14/24 21:03 Social History Smoking Status: Never smoker ROS ROS ED Constitutional Constitutional ED: Denies chills or fever(s) Eyes Eyes: Denies discharge from eye(s) ENT ENT ED: Denies discharge from eye(s), rhinorrhea or sore throat Cardiovascular Cardiovascular: Denies chest pain Respiratory/Chest Respiratory/Chest: Denies cough or dyspnea Gastrointestinal Gastrointestinal: Reports nausea; Denies abdominal pain or vomiting Musculoskeletal Musculoskeletal: Denies back pain or extremity pain Integumentary Denies Abrasions or rash Neurologic Neurologic: Denies headache(s) or weakness Psychiatric Psychiatric: Denies anxiety or depression Allergic/Immunologic Allergic/Immunologic ED: Denies lip swelling or urticaria EXAM Physical Exam Const Vital Signs: 01/14/24 21:03 01/14/24 21:09 Temperature 98.3 F Temperature Source Temporal Pulse Rate 89 Respiratory Rate 14 Respiratory Effort Normal Non-Labored Respiratory Pattern Normal Blood Pressure 144/71 H Blood Pressure Mean 95 Pulse Ox 100 Oxygen Delivery Method Room Air Positive well nourished and well developed General Appearance ED: well developed HEENT Reports moist mucous membranes Eyes EOMs intact bilaterally Chest Wall inspection of chest normal and palpation of chest normal Resp normal respiratory effort and clear to auscultation bilaterally Cardio regular rate and regular rhythm GI non-tender Palpation: soft Neuro oriented x3 and no sensory deficits noted Motor Exam: strength 5/5 throughout Psych mental status grossly normal Skin no rashes or lesions noted MDM MDM MDM Narrative Medical decision making narrative: Patient will be given p.o. Zofran. At this time her blood sugar has rebounded and is in the 130s to 140s. She will be watched to ensure her blood sugar does not drop again. Patient was observed for an hour. Her blood sugar continues to climb and is currently 175 on our machine. She does check this against her home glucometer as well as her continuous glucose monitor. She does feel comfortable discharge to home and will closely monitor her symptoms. Return instructions given. Lab Data Labs: Laboratory Results - last 24 hr 01/14/24 21:08 POC Glucose 78 Discharge Plan Triage Chief Complaint: Hypoglycemia ED Provider: Coni Hobbs Dx/Rx/DC Orders Clinical Impression: Hypoglycemia Instructions: Hypoglycemia (Low Blood Sugar) Primary Care Provider: Shanique Bacon NP Referrals: Shanique Bacon NP, [employer] [facility]-C [Primary Care Provider] - As Needed Disposition Disposition: Home, Self Care
[2024-01-14] MEDS: Ondansetron ODT 4 MG Tablet PO (21:26)
[2024-01-14 21:30] LABS: Bedside Glucose 78 mg/dL (74-106)
--- OUTSIDE RECORDS SUMMARY | 2024-01-14 21:48 | XMS RPT_ITS | CCD ---
Author Name Unknown Address [address] [place] [address] Organization [facility] Care Team Providers Care Ukrainian Folk Arts Instructor Name Role Phone Kaden ELECTRIC MOTOR REPAIRER.Jenniffer DUBON Primary Care Provider JENNIFFER ALFONSO Attending Unavailable JENNIFFER ALFONSO Primary Care Unavailable LORA ALFONSOE Alfred Primary Care Unavailable KIANNA MARTINEZ Attending Unavailable CIOCE, PILI C Referring Unavailable LORA ALFONSOE M Primary Care Unavailable CIOCE, PILI C Attending Unavailable RL ALFONSOLENE M Primary Care Unavailable CIOCE, PILI C Referring Unavailable KADEN JENNIFFER M Primary Care Unavailable CIOCE, PILI C Attending Unavailable KADEN JENNIFFER M Primary Care Unavailable KADEN JENNIFFER M Primary Care Unavailable KADEN, JENNIFFER M Referring Unavailable KADEN JENNIFFER M Primary Care Unavailable KADEN JENNIFFER M Referring Unavailable KADEN, JENNIFFER M Primary Care Unavailable CIOCE, PILI C Attending Unavailable Allergies Allergy Classification Reported Allergen(s) Allergy Type Date of Onset Reaction(s) Facility (14 sources) Erythromycin; Translations: [ERYTHROMYCIN] Drug Allergy 09-11-2011 Other: See Comments [facility] Work Phone: (3 sources) metFORMIN; Translations: [METFORMIN] Drug Allergy 09-25-2013 Diarrhea [facility] Work Phone: (14 sources) Neomycin; Translations: [NEOMYCIN] Drug Allergy 09-25-2013 Rash [facility] Work Phone: (14 sources) venlafaxine; Translations: [VENLAFAXINE] Drug Allergy 01-05-2014 Other: See Comments [facility] (8 sources) potato allergenic extract; Translations: [POTATO] Drug Allergy 11-19-2023 Other: See Comments [facility] Medications Current Medications Medication Drug Class(es) Dates Sig (Normalized) Sig (Original) doxycycline hyclate 100 mg oral tablet (1 source) Tetracycline-clas s Drug Start: 01-13-2024 End: 01-20-2024 take 1 tablet by mouth twice daily doxycycline (VIBRA-TABS) 100 mg tablet Take 1 tablet by mouth two times a day for 7 days. 14 tablet 0 01/13/2024 01/20/2024 Active Completed/Discontinued Medications Medication Drug Class(es) Dates Sig [...] Classification Problem Date Documented Date Episodic/Chronic Asthma (14 sources) Intermittent asthma; Translations: [Mild intermittent asthma, uncomplicated] Onset: 10-10-2023 10-10-2023 Chronic Diabetes mellitus without complication (15 sources) Type 2 diabetes mellitus without complication; Translations: [Type 2 diabetes mellitus without complications] Onset: 09-11-2011 10-10-2023 Chronic Esophageal disorders (2 sources) Gastroesophageal reflux disease without esophagitis; Translations: [Gastro-esophageal reflux disease without esophagitis] Onset: 10-10-2023 10-10-2023 Chronic Essential hypertension (2 sources) Essential hypertension; Translations: [Essential (primary) hypertension] Onset: 10-10-2023 10-10-2023 Chronic Immunizations and screening for infectious disease (12 sources) Patient encounter status; Translations: [Encounter for immunization] Onset: 10-10-2023 10-10-2023 Episodic Nutritional deficiencies (3 sources) Vitamin D deficiency; Translations: [Vitamin D deficiency, unspecified] Onset: 10-10-2023 10-10-2023 Chronic Nutritional deficiencies (3 sources) Vitamin B deficiency; Translations: [Vitamin B deficiency, unspecified] Onset: 10-10-2023 10-10-2023 Episodic Other endocrine disorders (13 sources) Polycystic ovary syndrome; Translations: [Polycystic ovarian syndrome] Onset: 09-11-2011 10-10-2023 Chronic Other endocrine disorders (1 source) Polycystic ovarian syndrome; Translations: [PCOS (polycystic ovarian syndrome)] Onset: 09-11-2011 Chronic Other nutritional; endocrine; and metabolic disorders (12 sources) Obese class I; Translations: [Obesity, unspecified] Onset: 09-25-2013 09-25-2013 Chronic Other screening for suspected conditions (not mental disorders or infectious disease) (7 sources) Cancer cervix screening status; Translations: [Encounter for screening for malignant neoplasm of cervix] Onset: 10-10-2023 10-10-2023 Episodic Other upper respiratory infections (1 source) Acute maxillary sinusitis; Translations: [Acute maxillary sinusitis, unspecified] 01-13-2024 Episodic Rheumatoid arthritis and related disease (14 sources) Rheumatoid arthritis; Translations: [Rheumatoid arthritis, unspecified] Onset: 10-10-2023 10-10-2023 Chronic Thyroid disorders (15 sources) Hypothyroidism; Translations: [Hypothyroidism, unspecified] Onset: 09-11-2011 10-10-2023 Chronic Past or Other Problems Problem Classification Problem Date Documented Da te Episodic/Chronic Other skin disorders (12 sources) Hirsutism; Translations: [Hirsutism] Onset: 09-11-2011 09-11-2011 Episodic Results Test Name Value Interpretation Reference Range Facil ity Vital Signs Date Time Vital Sign Value Performing Clinician Joanna marcus 01-13-2024 09:41-0500 Body temperature 97.5 [degF] Rut Brooks APRN.CNP Work Phone: [facility] 01-13-2024 09:41-0500 Body weight 89.18 kg Rut Brooks APRN.CNP Work Phone: [facility] 01-13-2024 09:41-0500 Diastolic blood pressure 82 mm[Hg] Rut Brooks APRN.CNP Work Phone: [facility] 01-13-2024 09:41-0500 Heart rate 86 /min Rut Cecilia ELECTRIC MOTOR REPAIRER.CRIME ANALYST Work Phone: [facility] 01-13-2024 09:41-0500 Respiratory rate 18 /min Rut Cecilia ELECTRIC MOTOR REPAIRER.CRIME ANALYST Work Phone: [facility] 01-13-2024 09:41-0500 SaO2% (BldA) [Mass fraction] 99 % Rut Cecilia ELECTRIC MOTOR REPAIRER.CRIME ANALYST Work Phone: [facility] 01-13-2024 09:41-0500 Systolic blood pressure 132 mm[Hg] Rut Cecilia ELECTRIC MOTOR REPAIRER.CRIME ANALYST Work Phone: [facility] 10-10-2023 14:52-0500 Body height 165.1 cm Jenniffer Kaden ELECTRIC MOTOR REPAIRER.CRIME ANALYST Work Phone: [facility] 10-10-2023 14:52-0500 Body temperature 98.2 [degF] Jenniffer Kaden ELECTRIC MOTOR REPAIRER.CRIME ANALYST Work Phone: [facility] 10-10-2023 14:52-0500 Body weight 87 kg Jenniffer Kaden ELECTRIC MOTOR REPAIRER.CRIME ANALYST Work Phone: [facility] 10-10-2023 14:52-0500 Diastolic blood pressure 72 mm[Hg] Jenniffer Kaden ELECTRIC MOTOR REPAIRER.CRIME ANALYST Work Phone: [facility] 10-10-2023 14:52-0500 Heart rate 91 /min Jenniffer Kaden ELECTRIC MOTOR REPAIRER.CRIME ANALYST Work Phone: [facility] 10-10-2023 14:52-0500 Respiratory rate 18 /min Jenniffer Kaden ELECTRIC MOTOR REPAIRER.CRIME ANALYST Work Phone: [facility] 10-10-2023 14:52-0500 SaO2% (BldA) [Mass fraction] 98 % Jenniffer Kaden ELECTRIC MOTOR REPAIRER.CRIME ANALYST Work Phone: [facility] 10-10-2023 14:52-0500 Systolic blood pressure 122 mm[Hg] Jenniffer Kaden ELECTRIC MOTOR REPAIRER.CRIME ANALYST Work Phone: [facility] Encounters Encounter Date Encounter Type Care Provider Facility Start: 01-13-2024 End: 01-13-2024 ambulatory JENNIFFER ALFONSO Facility:[facility] Start: 01-13-2024 End: 01-13-2024 Patient encounter procedure Rut Brooks DOMINGO Work Phone: [facility] Plan of Treatment Date Care Activity Detail Author Start: 01-07-2025 Hepatitis B screening Urine Al bumin:Creatinine Ratio [facility] Start: 01-07-2025 Hepatitis B surface antibody level LDL Cholesterol [facility] Start: 01-07-2025 Screening for malign ant neoplasm of breast Mammogram Screening [facility] Start: 12-09-2024 Glaucoma screening Dilated Retinal E xam [facility] Start: 10-30-2024 Hepatitis B screening Urine Al bumin:Creatinine Ratio [facility] Start: 10-30-2024 Hepatitis B surface antibody level LDL Cholesterol [facility] Start: 10-10-2024 Annual PCP Team Machine Shop Helper zackery Disease Visit Annual PCP Team Chronic Disease Visit [facility] Start: 10-10-2024 Hepatitis B Vaccine (1 of 3 - 3-dose series) Hepatitis B Vaccine (1 of 3 - 3-dose series) [facility] Immunizations Immunization Date Immunization Notes Care Provider Fa nadia 10-10-2023 pneumococcal Conjuga te, unspecified formulation Jenniffer Alfonso APRN.CNP Work Phone: [facility] Work Phone: 10-10-2023 pneumococcal (PCV20) vaccine, 20 valent (PREVNAR 20) Jenniffer Alfonso APRN.CNP Work Phone: [facility] 09-25-2013 pneumococcal polysaccharide vaccine, 23 valent Jenniffer Alfonso APRN.CNP Work Phone: [facility] Work Phone: Payers Date Payer Category Payer Unknown MMO MMO [employer] PPO [id number] 2023-Present [phone] [address] [place] [address] PPO [id number] 2023 Unknown [id number] Social History Date Type Detail Facility Start: 09-11-2011 Tobacco smoking stat us NHIS Ex-smoker [facility] Work Phone: History of tobacco use Current smoker [facility] Work Phone: Start: 09-11-2011 Tobacco use and exposure Smokeless tobacco non-user [facility] Work Phone: Start: 10-10-2023 End: 01-13-2024 Alcohol intake Current drinker of alcohol (finding) [facility] Start: 10-10-2023 End: 01-13-2024 History of Social function [facility] Start: 10-10-2023 End: 01-13-2024 Tobacco use panel [facility] National Score (1-10 0), lower number is lower risk 99 [facility] Start: 1970 Sex Assigned At Not on file C [facility] Start: 12-29-2023 Sexual orientation Heterosexual (sam albarran) [facility] Medical Equipment Procedure Code Equipment Code Equipment Origin al Text Equipment Identifier Dates Start: 09-11-2011 End: 10-10-2023 Clinical Notes 10-10-2023 to 01-13-2024 Rut Brooks APRN.CRIME ANALYST - 01/13/2024 10:02 AM ESTPatient InstructionsTelephone Encounter - Latanya Alexander MA - 01/09/2024 3:46 PM ESTTelephone Encounter - Latanya Alexander MA - 01/09/2024 3:45 PM EST Note Date & Type Note Facility 01-13-2024 Note HNO ID: [id number] Author: RUT BROOKS APRN.CRIME ANALYST Service: ? Author Type: Nurse Practitioner Type: Progress Notes Filed: 01/13/2024 10:08 Note Text: Subjective The history is provided by the patient. No speech and language assistant was used. MARY KAY Brewer is a 53 year old female who presents today for CC of cough, congestion, runny nose sinus pressure, post nasal drainage and sore throat for 3 weeks that won't go away. She has used multiple otc cough and cold medications with short term relief. BP 132/82 Pulse 86 Temp 36.4 ?C (97.5 ?F) (Tympanic) Resp 18 Wt 89.2 kg (196 lb 9.6 oz) LMP 07/18/2023 (Exact Date) SpO2 99% BMI 32.72 kg/m? Social History Tobacco Use Smoking status: Former Smokeless tobacco: Never Substance Use Topics Alcohol use: Yes Drug use: Never PAST MEDICAL HISTORY Diagnosis Date Asthma Ex - Smoker HTN (hypertension) Hypothyroidism Hypothyroidism Infertility, female Daughter birthed by surrogate female Leg cramps PCOS (polycystic ovarian syndrome) RA (rheumatoid arthritis) (HCC) On EFFEXOR / Pt. indicates side effect of drug. (+) Family history of RA Stress bladder incontinence, female Type II or unspecified type diabetes mellitus without mention of complication, not stated as uncontrolled Vitamin B deficiency Vitamin D deficiency I have confirmed and edited as necessary, the [facility] Review of Systems Constitutional: Negative for chills, fever and malaise/fatigue. HENT: Positive for congestion, sinus pain and sore throat. Negative for ear pain. Respiratory: Positive for cough. Negative for sputum production, shortness of breath and wheezing. Cardiovascular: Negative for chest pain. Gastrointestinal: Negative for abdominal pain, diarrhea, nausea and vomiting. Musculoskeletal: Negative for myalgias. Neurological: Positive for headaches. Objective Physical Exam Vitals and nursing note reviewed. HENT: Head: Normocephalic and atraumatic. Right Ear: Tympanic membrane, ear canal and external ear normal. Left Ear: Tympanic membrane, ear canal and external ear normal. Nose: Mucosal edema, congestion and rhinorrhea present. Right Sinus: Maxillary sinus tenderness present. No frontal sinus tenderness. Left Sinus: Maxillary sinus tenderness present. No frontal sinus tenderness. Mouth/Throat: Pharynx: Uvula midline. No oropharyngeal exudate or posterior oropharyngeal erythema. Cardiovascular: Rate and Rhythm: Normal rate and regular rhythm. Heart sounds: Normal heart sounds. Pulmonary: Effort: Pulmonary effort is normal. Breath sounds: Normal breath sounds. Lymphadenopathy: Head: Right side of head: No submental, submandibular or tonsillar adenopathy. Left side of head: No submental, submandibular or tonsillar adenopathy. Cervical: No cervical adenopathy. Skin: General: Skin is warm and dry. Neurological: Mental Status: She is alert. Psychiatric: Mood and Affect: Affect normal. ASSESSMENT/PLAN: 1. Acute non-recurrent maxillary sinusitis - ICD9: 461.0, ICD10: J01.00 - Will begin treatment with Doxycycline - Supportive care with plenty of fluids, rest, and analgesia prn. - Follow up in one week if symptoms persist or worsen. Diagnosis and treatment plan were discussed and questions were answered to the patient's satisfaction. Pt acknowledged understanding of concepts and follow up plan. Specific signs and symptoms that would indicate the need for higher level of care were discussed in detail warranting prompt ER evaluation. Rut Brooks APRN.[facility] 01-13-2024 History of Presen t illness Narrative Subjective The history is provided by the patient. No speech and language assistant was used. MARY KAY Brewer is a 53 year old female who presents today for CC of cough, congestion, runny nose sinus pressure, post nasal drainage and sore throat for 3 weeks that won't go away. She has used multiple otc cough and cold medications with short term relief. BP 132/82 Pulse 86 Temp 36.4 C (97.5 F) (Tympanic) Resp 18 Wt 89.2 kg (196 lb 9.6 oz) LMP 07/18/2023 (Exact Date) SpO2 99% BMI 32.72 kg/m Social History Tobacco Use Smoking status: Former Smokeless tobacco: Never Substance Use Topics Alcohol use: Yes Drug use: Never PAST MEDICAL HISTORY Diagnosis Date Asthma Ex - Smoker HTN (hypertension) Hypothyroidism Hypothyroidism Infertility, female Daughter birthed by surrogate female Leg cramps PCOS (polycystic ovarian syndrome) RA (rheumatoid arthritis) (HCC) On EFFEXOR / Pt. indicates side effect of drug. (+) Family history of RA Stress bladder incontinence, female Type II or unspecified type diabetes mellitus without mention of complication, not stated as uncontrolled Vitamin B deficiency Vitamin D deficiency I have confirmed and edited as necessary, the [facility] Review of Systems Constitutional: Negative for chills, fever and malaise/fatigue. HENT: Positive for congestion, sinus pain and sore throat. Negative for ear pain. Respiratory: Positive for cough. Negative for sputum production, shortness of breath and wheezing. Cardiovascular: Negative for chest pain. Gastrointestinal: Negative for abdominal pain, diarrhea, nausea and vomiting. Musculoskeletal: Negative for myalgias. Neurological: Positive for headaches. Objective Physical Exam Vitals and nursing note reviewed. HENT: Head: Normocephalic and atraumatic. Right Ear: Tympanic membrane, ear canal and external ear normal. Left Ear: Tympanic membrane, ear canal and external ear normal. Nose: Mucosal edema, congestion and rhinorrhea present. Right Sinus: Maxillary sinus tenderness present. No frontal sinus tenderness. Left Sinus: Maxillary sinus tenderness present. No frontal sinus tenderness. Mouth/Throat: Pharynx: Uvula midline. No oropharyngeal exudate or posterior oropharyngeal erythema. Cardiovascular: Rate and Rhythm: Normal rate and regular rhythm. Heart sounds: Normal heart sounds. Pulmonary: Effort: Pulmonary effort is normal. Breath sounds: Normal breath sounds. Lymphadenopathy: Head: Right side of head: No submental, submandibular or tonsillar adenopathy. Left side of head: No submental, submandibular or tonsillar adenopathy. Cervical: No cervical adenopathy. Skin: General: Skin is warm and dry. Neurological: Mental Status: She is alert. Psychiatric: Mood and Affect: Affect normal. ASSESSMENT/PLAN: 1. Acute non-recurrent maxillary sinusitis - ICD9: 461.0, ICD10: J01.00 - Will begin treatment with Doxycycline - Supportive care with plenty of fluids, rest, and analgesia prn. - Follow up in one week if symptoms persist or worsen. Diagnosis and treatment plan were discussed and questions were answered to the patient's satisfaction. Pt acknowledged understanding of concepts and follow up plan. Specific signs and symptoms that would indicate the need for higher level of care were discussed in detail warranting prompt ER evaluation. Rut Brooks APRN.CRIME ANALYST documented in this encounter [facility] 01-13-2024 Instructions Rut Brooks APRN.JAGDISH - 01/13/2024 9:56 AM EST -Increase fluid intake. --Rest as much as possible. - Nasal saline spray, braden pot, flonase Take the entire course of antibiotics as prescribed. DO NOT stop taking it early, even if you are feeling better. -Monitor for signs of worsening infection: increased temperature, pain in face, ear pain or headaches or increase in nasal congestion/mucous that is not improving. -Educated patient on side effects of medication. Doxycycline - take as directed with food, do not use any supplements documented in this encounter [facility] 01-09-2024 Miscellaneous Notes Called pt left Vm with results Latanya Alexander MA ----- Message from Jenniffer Alfonso APRN.CRIME ANALYST sent at 01/08/2024 4:05 PM EST ----- Mammogram normal. Follow up routine yearly screening IMPRESSION IMPRESSION: NEGATIVE There is no mammographic evidence of malignancy. A 1 year screening mammogram is recommended. documented in this encounter [facility] 01-08-2024 Miscellaneous Notes Called pt left VM with results and recommendations Latanya Alexander MA ----- Message from Jenniffer Alfonso APRN.CRIME ANALYST sent at 01/08/2024 6:57 AM EST ----- Lab results are WNL except trig remain elevated decrease and good sugar control will help this. HDL too low. Recommend exercise daily. Please notify patient. Jenniffer Alfonso APRN.CRIME ANALYST documented in this encounter [facility] 01-08-2024 Miscellaneous Notes January 09, 2024 PID: [id number] Henrietta Brewer [address] [place] [address] Dear Ms. Brewer, We are pleased to inform you that the results of your recent breast imaging exam on 01/07/2024 are normal. Early detection of cancer is very important. We also understand recommendations regarding breast cancer screening are controversial. Please discuss with your primary care provider which strategy is best for you and whether a mammogram is right for you. Your imaging studies and report will be kept on file at [facility] as part of your permanent medical record and are available for your continuing care. Thank you for allowing us to help in meeting your health care needs. Sincerely, Dr. Quesada Interpreting Radiologist [facility] (Normal over 40) documented in this encounter [facility] 01-07-2024 Miscellaneous Notes Called pt let her know the results Latanya Alexander MA ----- Message from Jenniffer Alfonso APRN.CRIME ANALYST sent at 01/07/2024 12:55 PM EST ----- Cmp unremarkable. Sugar elevated but is know diabetic. Encourage following diabetic diet closely CBC wnl documented in this encounter [facility] 01-07-2024 Note HNO ID: [id number] Author: RAEGAN MENDOZA RT(R) Service: ? Author Type: Deputy Chief Magistrate Type: Progress Notes Filed: 01/07/2024 07:06 Note Text: Radiology Service Progress Note PATIENT NAME: Henrietta Brewer DATE OF SERVICE: January 07, 2024 TIME: 7:04 AM PATIENT IDENTITY VERIFICATION COMPLETED USING TWO (2) IDENTIFIERS: Name and Date of confirmed by patient verbally. FALL SCREENING: Has the patient had 2 falls in the last year or 1 fall with injury or currently using an Ambulatory Assistive Device (Walker, Cane, Wheelchair, Crutches, etc.)? No PATIENT GENDER DATA: Female. status: : No status: NO. PATIENT RELEVANT IMPLANT DATA REVIEWED: Not Applicable PATIENT PRESENTS WITH AN IMPLANTABLE OR ATTACHED CLINICAL PRODUCT MANAGER: No RADIOLOGY DEPARTMENT: Mammography PERIPHERAL IV DATA: Not applicable SIGNED BY: RT Henry(R) January 07, 2024 7:04 AM [facility] 01-07-2024 History of Presen t illness Narrative Radiology Service Progress Note PATIENT NAME: Henrietta Brewer DATE OF SERVICE: January 07, 2024 TIME: 7:04 AM PATIENT IDENTITY VERIFICATION COMPLETED USING TWO (2) IDENTIFIERS: Name and Date of confirmed by patient verbally. FALL SCREENING: Has the patient had 2 falls in the last year or 1 fall with injury or currently using an Ambulatory Assistive Device (Walker, Cane, Wheelchair, Crutches, etc.)? No PATIENT GENDER DATA: Female. status: : No status: NO. PATIENT RELEVANT IMPLANT DATA REVIEWED: Not Applicable PATIENT PRESENTS WITH AN IMPLANTABLE OR ATTACHED CLINICAL PRODUCT MANAGER: No RADIOLOGY DEPARTMENT: Mammography PERIPHERAL IV DATA: Not applicable SIGNED BY: RT Henry(R) January 07, 2024 7:04 AM documented in this encounter [facility] 12-25-2023 Note HNO ID: [id number] Author: NERISSA PETERSEN RN Service: ? Author Type: ? Type: Progress Notes Filed: 12/25/2023 08:19 Note Text: [facility] 12-25-2023 Note HNO ID: [id number] Author: PILI FITZGERALD APRN.CNP Service: ? Author Type: Nurse Practitioner Type: Progress Notes Filed: 12/25/2023 07:39 Note Text: OFFICE VISIT PROGRESS NOTE CC Henrietta Brewer is a 53 year old female who presents today for BLOOD SUGAR REVIEW, DM MED DOSE REVIEW, ADJUST. HPI Diagnosed with diabetes mellitus type II, ~ 2008 Last endocrine OV 10/30/2023 Some elements copied from my note 10/30/2023 which have been updated where appropriate, and all reflect current medical decision making from date of this visit. Henrietta Brewer is a 53 year old [...] and her own dtr was ill last day States her initial COVID test was negative [...] coffee Exercise: work, 15k steps a day HPI 12/25/2023 Still having some lows overnight 80's on CGM Did not like the 10 mg MOUNJARO Amaryl was giving her lows Had 'COVID' and now recently RASHAD Was on steroid taper additionally for RA Did not know to use her SS Has not seen DM education CURRENT DM MEDS AMARYL 2 mg 1/2 tab daily METFORMIN 500 2 tab BID TRESIBA 26 units daily MOUNJARO 7.5 weekly injection SYNTHROID 100 mcg 1 tab daily SMBG Type of Monitor: Other Frequency of Monitorin times a day BG Values: Values over past week: Highest ; Lowest Hypoglycemia: no Diet: Low carbohydrate Exercise: walks 15k steps daily during work DM REVIEW OF SYSTEMS Last Eye Exam : due Last Podiatry Exam: due Cardiorespiratory: negative, denies chest pain, pressure Claudication: no Dyslipidemia: Yes, controlled on medication High Blood Pressure: Yes, controlled on medication CURRENT LABS Component Latest Ref Rng AND Units 10/30/2023 Glucose 74 - 99 mg/dL 147 (H) BUN 7 - 21 mg/dL 24 (H) Creatinine 0.58 - 0.96 mg/dL 0.79 Sodium 136 - 144 mmol/L 139 Potassium 3.7 - 5.1 mmol/L 4.3 Chloride 97 - 105 mmol/L 105 CO2 22 - 30 mmol/L 22 Anion Gap 9 - 18 mmol/L 12 eGFR >=60 mL/min/1.73mA? 90 Cholesterol, Total <200 mg/dL 150 Triglyceride <150 mg/dL 83 HDL Cholesterol >39 mg/dL 45 Non HDL Cholesterol <130 mg/dL 105 Fasting Time hrs 12 VLDL Cholesterol <30 mg/dL 17 TC:HDL Ratio <5.10 3.33 LDL Cholesterol <100 mg/dL 88 LDL:HDL Ratio <2.54 1.96 Creatinine, Ur Random (UCRR) 20.0 - 300.0 mg/dL 139.4 Albumin, Urine Random mg/L 13.6 Albumin/Creat Ratio <30 mg/g 10 Hemoglobin A1C 4.3 - 5.6 % 8.4 (H) Estimated Average Glucose mg/dL 194 Vitamin B12 232 - 1,245 pg/mL 333 TSH 0.270 - 4.200 mIU/L 1.460 Free T4 0.9 - 1.7 ng/dL 1.7 Vitamin D 25 Hydroxy 31.0 - 80.0 ng/mL 33.0 PAST MEDICAL HISTORY Diagnosis Date Asthma Ex - Smoker HTN (hypertension) Hypothyroidism Hypothyroidism Infertility, female Daughter birthed by surrogate female Leg cramps PCOS (polycystic ovarian syndrome) RA (rheumatoid arthritis) (HCC) On EFFEXOR / Pt. indicates side effect of drug. (+) Family history of RA Stress bladder incontinence, female Type II or unspecified type diabetes mellitus without mention of complication, not stated as uncontrolled Vitamin B deficiency Vitamin D deficiency PAST SURGICAL HISTORY Procedure Laterality Date NONE [...] use: Yes Current Outpatient Medications Medication Sig insulin degludec (TRESIBA FLEXTOUCH U-100) 100 unit/mL (3 mL) injection pen Inject 26 units once daily tirzepatide (MOUNJARO) 10 mg/0.5 mL pen injector Inject (more content not included)... [facility] 12-09-2023 Note HNO ID: [id number] Author: KIANNA MARTINEZ OD Service: ? Author Type: PIE DOUGH ROLLER Type: Progress Notes Filed: 12/09/2023 11:21 Note Text: 1. Type 2 diabetes mellitus without retinopathy (HCC) Risk of diabetic changes and vision loss can be minimized by tight control of blood sugar, blood pressure, and cholesterol levels. Educated patient to continue care with primary care doctor and/or bakery assistant to maintain optimum levels as they are important to avoid ocular complications. Encouraged patient to call the office immediately with any changes to vision or visual concerns. Advised to not wait until the next scheduled exam. 2. High risk medication use - Indication: RA - no signs of toxicity today on exam - OCT (12/09/23): normal - Visual Field 10-2 (12/09/23): normal - has been using plaquenil 200 mg daily since 2014 - The recommended dosage is the lower of 5 mg/kg/day based on real body weight or 6.5 mg/kg/day based on ideal body weight as described in the most recent AAO plaquenil screening guidelines - Risk factors for toxicity include daily dose and duration of use, renal disease, tamoxifen use, history of retinal or macular disease - Patient is 89 kg which gives a maximum safe ophthalmic dose of 445 mg daily by real body weight 3. Presbyopia both eyes Continue with current specs (only 6 months old) Follow-up in 1 year for KEI and plaquenil testing + OCT nerve Kianna Martinez, OD December 09, 2023 11:15 AM [facility] 10-31-2023 Miscellaneous Notes Phoned [facility] pharmacy due to conflicting messages regarding prescriptions. Patients insulin did not require a PA as noted in another message but was covered under a different formulary. Pharmacist changed to covered med. Prior Authorization was completed for scott. Cover My Meds tate [id number] Last office visit notes faxed to [facility] at that time. Coni Pedraza MA documented in this encounter [facility] 10-31-2023 Miscellaneous Notes message sent to Pt. Nerissa Petersen RN October 31, 2023 11:51 AM documented in this encounter [facility] 10-30-2023 Note HNO ID: [id number] Author: Pili Fitzgerald APRN.JAGDISH Service: ? Author Type: Nurse Practitioner Type: [...] HEENT:Negative for frequent (more content not included)... [facility] 10-10-2023 Note HNO ID: [id number] Author: Jenniffer Alfonso APRN.CRIME ANALYST Service: ? Author Type: Nurse Practitioner Type: Progress Notes Filed: 10/10/2023 11:06 PM Note Text: This note was created using Iwebalize. Subjective Henrietta Brewer is a 53 year old female here today to establish care. PMH DM, HTN, HLD, hypothyroidism, RA, asthma, PCOS. [place] from [facility] [place] the summer. She needs referral to [...] 4 blood sugar diagnostic (FREESTYLE LITE STRIPS) [facility] test strip TEST BLOOD SUGARS 6-7 TIMES DAILY (Patient not taking: Reported on 10/10/2023) 200 Each 11 insulin aspart (NOVOLOG) 100 unit/mL SUBCUTANEOUS Soln Inject subcutaneously. up to 20 units at meals (Patient not taking: Reported on 10/10/2023) 2 Vial 11 Aspirin 81 mg ORAL Tab Take 81 mg by mouth once daily. (Patient not taking: Reported on 10/10/2023) Lancets [facility] lancets Use as instructed (Patient not taking: Reported on 10/10/2023) 100 Each 11 No current facility-administered medications for this visit. ACTIVE PROBLEM LIST Pcos (Polycystic Ovarian Syndrome) Hirsutism Type II Or Unspecified Type Diabetes Mellitus Without Mention of Complication, Not Stated As Uncontrolled Hypothyroidism Obesity (Bmi 30.0-34.9) Ra (Rheumatoid Arthritis) (Hcc) Asthma PAST MEDICAL HISTORY Diagnosis Date Asthma Ex - Smoker Hypothyroidism Infertility, female Daughter birthed by surrogate female Leg cramps RA (rheumatoid arthritis) (HCC) On EFFEXOR / Pt. indicates side effect of drug. (+) Family history of RA Stress bladder incontinence (more content not included)... [facility] 10-10-2023 Instructions Jenniffer Alfonso, ELECTRIC MOTOR REPAIRER.[facility] - 10/10/2023 4:07 PM EST ASSESSMENT/PLAN: 1. Type 2 diabetes mellitus without complication, without long-term current use of insulin (HCC) - ICD9: 250.00, ICD10: E11.9 (primary diagnosis) [...] ICD9: 256.4, ICD10: E28.2 - CONSULT TO RADIO FREQUENCY TECHNICIAN 7. Vitamin D deficiency - ICD9: 268.9, [...] ICD9: V76.2, ICD10: Z12.4 - CONSULT TO RADIO FREQUENCY TECHNICIAN 13. Screening for lipid disorders - ICD9: [...] - ICD9: V70.9, ICD10: Z00.00 Jenniffer Alfonso APRN.CRIME ANALYST documented in this encounter [facility] 10-10-2023 History of Presen t illness Narrative This note was created using eZ Systemsriter. Subjective Henrietta Brewer is a 53 year [...] needles, DISPOSABLE, (PEN NEEDLE) 31 X 04/09 Mis Ndle use as directed (Patient not taking: Reported on 10/10/2023) 100 Each 11 lisinopril 10 mg ORAL tablet Take 10 mg by mouth once daily. (Patient not taking: Reported on 10/10/2023) Levothyroxine 150 mcg ORAL Cap Take 150 mcg by mouth once daily. (Patient not taking: Reported on 10/10/2023) 90 capsule 4 blood sugar diagnostic (FREESTYLE LITE STRIPS) [facility] test strip TEST BLOOD SUGARS 6-7 TIMES DAILY (Patient not taking: Reported on 10/10/2023) 200 Each 11 insulin aspart (NOVOLOG) 100 unit/mL SUBCUTANEOUS Soln Inject subcutaneously. up to 20 units at meals (Patient not taking: Reported on 10/10/2023) 2 Vial 11 Aspirin 81 mg ORAL Tab Take 81 mg by mouth once daily. (Patient not taking: Reported on 10/10/2023) Lancets [facility] lancets Use as instructed (Patient not taking: Reported on 10/10/2023) 100 Each 11 No current facility-administered medications for this visit. ACTIVE PROBLEM LIST Pcos (Polycystic Ovarian Syndrome) Hirsutism Type II Or Unspecified Type Diabetes Mellitus Without Mention of Complication, Not Stated As Uncontrolled Hypothyroidism Obesity (Bmi 30.0-34.9) Ra (Rheumatoid Arthritis) (Hcc) Asthma PAST MEDICAL HISTORY Diagnosis Date Asthma [...] diet of 1000 mg/day for under 50, 8968-4327 mg/day for 50+ - Discussed need and [...] at this time. - Patient was counseled [id number] by myself (the billing provider) for the [...] 256.4, ICD10: E28.2 - stable. Referral to TELEVISION INSTALLER HELPER for management and routine Gynecological care - CONSULT TO RADIO FREQUENCY TECHNICIAN 8. Vitamin D deficiency - ICD9: 268.9, [...] ICD9: V76.2, ICD10: Z12.4 - CONSULT TO RADIO FREQUENCY TECHNICIAN 14. Screening for lipid disorders - ICD9: [...] 30 MG CAPSULE,BIPHASE DELAYED RELEASE Jenniffer Alfonso APRN.CNP I spent a total of 65 minutes on the date of the service which included preparing to see the patient, [id number] patient care, completing clinical documentation, obtaining and/or reviewing separately obtained history, performing a medically appropriate examination, counseling and educating the patient/family/caregiver, and ordering medications, tests, or procedures. documented in this encounter [facility] Diagnosis Encounter for screening mammogram for malignant neoplasm of breast Other screening mammogram [facility] Diagnosis Acute non-recurrent maxillary sinusitis- Primary [facility] (n[facility]ative)* Outpatient Procedure (Routine) - Pending Review Specialty Diagnoses / Procedures Referred By Contac t Referred To [facility] Diagnoses Type 2 diabetes mellitus without complication, without long-term current use of insulin (HCC) Primary hypertension Procedures ECG COMPLETE ECG ROUTINE ECG W/LEAST 12 LDS W/I&R Jenniffer Alfonso APRN.CRIME ANALYST [address] [place] [address] [facility] [address] [place] [address] Referral ID Status Reason Start Date Expiration Date Visits Requested Visits Authorized [id number] Pending Review Auto-Generat ed Referral 3 10/09/2024 1 1 * Consult, Test, Treat (Routine) - Authorized Specialty Diagnoses / Procedures Referred By Contact Referred To Contact Rheumatology / [facility] Diagnoses Rheumatoid arthritis, involving unspecified site, unspecified whether rheumatoid factor present (HCC) Procedures CONSULT TO RHEUM/IMMUN DISEASE OFFICE/OUTPATIENT [facility] 60-74 MINUTES Jenniffer Alfonso APRN.CRIME ANALYST [address] [place] [address] July Dave [address] [place] [address] Referral ID Status Reason Start Date Expiration Date Visits Requested Visits Authorized [id number] Authorized PCP Requested Referral 3 10/09/2024 1 1 * Consult, Test, Treat (Routine) - Authorized Specialty Diagnoses / Procedures Referred By Contact Referred To Contact Endocrinology / [facility] Diagnoses Hypothyroidism, unspecified type Type 2 diabetes mellitus without complication, without long-term current use of insulin (HCC) Procedures CONSULT TO ENDOCRINOLOGY OFFICE/OUTPATIENT [facility] 60-74 MINUTES Jenniffer Alfonso APRN.CRIME ANALYST [address] [place] [address] Ander Allen MD [address] [address] Referral ID Status Reason Start Date Expiration Date Visits Requested Visits Authorized [id number] Authorized PCP Requested Referral 3 10/09/2024 1 1 * Consult, Test, Treat (Routine) - Authorized Specialty Diagnoses / Procedures Referred By Contac t Referred To Contact General Surgery / [facility] Diagnoses Colon cancer screening Procedures CONSULT TO GENERAL SURGERY OFFICE/OUTPATIENT [facility] 60-74 MINUTES Jenniffer Alfonso APRN.CRIME ANALYST [address] [place] [address] Luci Snell MD [address] [place] [phone] Referral ID Status Reason Start Date Expiration Date Visits Requested Visits Authorized [id number] Authorized PCP Requested Referral 3 10/09/2024 1 1 * Consult, Test, Treat (Routine) - Authorized Specialty Diagnoses / Procedures Referred By Contac t Referred To Contact [facility] Diagnoses Screening for cervical cancer PCOS (polycystic ovarian syndrome) Procedures CONSULT TO RADIO FREQUENCY TECHNICIAN OFFICE/OUTPATIENT [facility] 60-74 MINUTES Jenniffer Alfonso APRN.CRIME ANALYST [address] [place] [address] Coni Sheth MD [address] [address] Referral ID Status Reason Start Date Expiration Date Visits Requested Visits Authorized [id number] Authorized PCP Requested Referral Auto-Generate d Referral 3 10/09/2024 1 1 * Diagnostic Procedure Only (Routine) - Pending Review Specialty Diagnoses / Procedures Referred By Contac t Referred To Contact [facility] Diagnoses Encounter for screening mammogram for malignant neoplasm of breast Procedures NANDA SCREENING SCREENING MAMMOGRAPHY BI 2-VIEW BREAST INC CAD Jenniffer Alfonso APRN.JAGDISH [address] [place] [address] [facility] [address] [place] [address] Referral ID Status Reason Start Date Expiration Date Visits Requested Visits Authorized [id number] Pending Review Auto-Generat ed Referral 3 11/08/2024 1 1 [facility]* Diagnostic Procedure Only (Routine) - Closed Specialty Diagnoses / Procedures Referred By Contac t Referred To Contact [facility] Diagnoses Encounter for screening mammogram for malignant neoplasm of breast Procedures NANDA SCREENING SCREENING MAMMOGRAPHY BI 2-VIEW BREAST INC CAD Jenniffer Alfonso APRN.JAGDISH [address] [place] [address] [facility] [address] [place] [address] Referral ID Status Reason Start Date Expiration Date V isits Requested Visits Authorized [id number] Closed Auto-Generate d Referral 10/10/2023 11/08/2024 1 1 [facility] Summary Purpose Family History No Family History [...] or prosecute any alcohol or drug abuse patient.[facility] the event this information is protected by the Federal Confidentiality of Alcohol and Drug Abuse Patient Records regulations: The Federal rules restrict any use of the information to criminally investigate or prosecute any alcohol or drug abuse patient.[facility] the event this information is protected by the Federal Confidentiality of Alcohol and Drug Abuse Patient Records regulations: The Federal rules restrict any use of the information to criminally investigate or prosecute any alcohol or drug abuse patient.[facility] the event this information is protected by the Federal Confidentiality of Alcohol and Drug Abuse Patient Records regulations: The Federal rules restrict any use of the information to criminally investigate or prosecute any alcohol or drug abuse patient.[facility] the event this information is protected by the Federal Confidentiality of Alcohol and Drug Abuse Patient Records regulations: The Federal rules restrict any use of the information to criminally investigate or prosecute any alcohol or drug abuse patient.[facility] the event this information is protected by the Federal Confidentiality of Alcohol and Drug Abuse Patient Records regulations: The Federal rules restrict any use of the information to criminally investigate or prosecute any alcohol or drug abuse patient.[facility] the event this information is protected by the Federal Confidentiality of Alcohol and Drug Abuse Patient Records regulations: The Federal rules restrict any use of the information to criminally investigate or prosecute any alcohol or drug abuse patient.[facility] the event this information is protected by the Federal Confidentiality of Alcohol and Drug Abuse Patient Records regulations: The Federal rules restrict any use of the information to criminally investigate or prosecute any alcohol or drug abuse patient.[facility] the event this information is protected by the Federal Confidentiality of Alcohol and Drug Abuse Patient Records regulations: The Federal rules restrict any use of the information to criminally investigate or prosecute any alcohol or drug abuse patient.[facility] the event this information is protected by the Federal Confidentiality of Alcohol and Drug Abuse Patient Records regulations: The Federal rules restrict any use of the information to criminally investigate or prosecute any alcohol or drug abuse patient.[facility] the event this information is protected by the Federal Confidentiality of Alcohol and Drug Abuse Patient Records regulations: The Federal rules restrict any use of the information to criminally investigate or prosecute any alcohol or drug abuse patient.[facility] the event this information is protected by the Federal Confidentiality of Alcohol and Drug Abuse Patient Records regulations: The Federal rules restrict any use of the information to criminally investigate or prosecute any alcohol or drug abuse patient.[facility] Reason for Visit (unrecogniz ed section and content) Specialty Diagnoses / Procedures Referred By Syd faust Referred To Contact Internal Medicine / INTERNAL MEDICINE Diagnoses new pt Procedures 4C NEW Self Jenniffer Alfonso, ELECTRIC MOTOR REPAIRER.CRIME ANALYST [address] [place] [address] Referral ID Status Reason Start Date Expiration Date Visits Requested Visits Authorized [id number] Authorized Patient Cleared - Qualified 100% FAS 3 01/07/2024 99 99 Reason Comments Med Change Request Reason Comments Medication Problem Prescription authori zations Reason Comments Medication Problem Reason Onset Date Comments Refill Request 12/25/2023 Reason Comments Results Reason Comments Sore Throat ST, sinus , congesti on and runny nose x 3 weeks Care Teams (unrecognized sec tion and content) Ukrainian Folk Arts Instructor Relationship Specialty Start Date End Date Jenniffer Alfonso, ELECTRIC MOTOR REPAIRER.CRIME ANALYST [address] [place] [address] PCP - General Internal Medicine 10/10/23 [employer] Folk Arts Instructor Relationship Specialty Start Date End Date Jenniffer Alfonso, ELECTRIC MOTOR REPAIRER.CRIME ANALYST [address] [place] [address] PCP - General Internal Medicine 10/10/23 [employer] Folk Arts Instructor Relationship Specialty Start Date End Date Jenniffer Alfonso, ELECTRIC MOTOR REPAIRER.CRIME ANALYST [address] [place] [address] PCP - General Internal Medicine 10/10/23 Ukrainian Folk Arts Instructor Relationship Specialty Start Date End Date Jenniffer Alfonso, ELECTRIC MOTOR REPAIRER.CRIME ANALYST [address] [place] [address] PCP - General Internal Medicine 10/10/23 [employer] Folk Arts Instructor Relationship Specialty Start Date End Date Jenniffer Alfonso, ELECTRIC MOTOR REPAIRER.CRIME ANALYST [address] [place] [address] PCP - General Internal Medicine 10/10/23 Ukrainian Folk Arts Instructor Relationship Specialty Start Date End Date Jenniffer Alfonso APRN.CRIME ANALYST [address] [place] [address] PCP - General Internal Medicine 10/10/23 [employer] Folk Arts Instructor Relationship Specialty Start Date End Date Jenniffer Alfonso APRN.CRIME ANALYST [address] [place] [address] PCP - General Internal Medicine 10/10/23 INFORMATION SOURCE (unrecogn ized section and content) DATE CREATED AUTHOR AUTHOR'S MICA ATSHIRA 01/13/2024 [facility] FOR RECORDS PERTAINING TO PATIENTS WHO ARE [...] BE BASED ON THE PRIMARY CLINICAL RECORDS. [employer] [facility]. provides no warranty or guarantee of the accuracy or completeness of information in this document.
[2024-01-14 22:18] VITALS: BP 133/88; PULSE 78; RESP 16; TEMP 36.8; O2SAT 98
[2024-01-14 22:29] LABS: Bedside Glucose 175 mg/dL (74-106)
== END 2024-01-14 22:19 | disposition home or self-care (01) ==
PROVIDERS: Emergency Provider Emergency Medicine; PCP Nurse Practitioner Adult Health; Visit Provider Emergency Medicine
DX: E11.649 Type 2 diabetes mellitus with hypoglycemia without coma (principal)
CPT/HCPCS: 82962; 99282

== ENCOUNTER 2024-07-02 16:28 | Emergency (ER) | payer OTHER, SELFPAY ==
[2024-07-02 16:29] VITALS: BP 154/85; PULSE 90; RESP 17; TEMP 36.1; O2SAT 98; BMI 30.1
--- NOTE | 2024-07-02 17:08 | CT_ITS ---
STUDY: CTA CHEST REASON FOR EXAM: Female, 54 years old. Back and chest pain RADIATION DOSAGE (If Supplied By Facility): CTDIvol = ( 12.96 ) mGy, DLP = ( 455.51 ) mGycm TECHNIQUE: The examination was performed with the intravenous administration of 100mL Isovue-370. Post-processing of the angiographic images was performed, with multiplanar reformation and 3D reconstruction. Individualized dose optimization techniques were used for this CT. COMPARISON: None. FINDINGS: Normal enhancement of the main pulmonary artery and right and left pulmonary arteries. Normal enhancement of the bilateral peripheral pulmonary arteries. There is no demonstrated pulmonary embolism. No aortic aneurysm. There is no demonstrated aortic dissection. Cardiac size normal. Trace pericardial effusion. Normal mediastinum. Normal hilar regions. Patchy infiltrate inferior lingula. No pleural effusions. Normal chest wall structures. No acute or aggressive osseous abnormality. No acute findings in the upper abdomen. CT/CTA Chest W/WO Contrast IMPRESSION: Normal CTA chest examination, without a demonstrated pulmonary embolism or arterial dissection. Patchy infiltrate in the inferior lingula, likely pneumonia. Recommend short-term follow-up to resolution. Electronically Signed: Corey Dubois MD at 19:06 EDT ,
--- NOTE | 2024-07-02 17:09 | EX.ED.DYSGE1 ---
HPI History of Present Illness Chief Complaint: Chest Pain Informant: patient and parent Narrative Narrative: 54-year-old female past medical history of diabetes, hypertension, presents with back pain between her shoulder blades radiating to her chest. Pain started approximately an hour ago when she was sitting at rest. Of note, she states that she had colonoscopy and upper endoscopy performed today. She denies any nausea or vomiting, no shortness of breath. No exacerbating or alleviating factors. The pain is very sharp and stabbing. She thought that maybe it was a muscle strain so she tried to stretch out the area without relief of her symptoms. She denies any tearing sensation. No other symptoms in association with this. She rated the pain a 7 out of 10, and it felt so bad that is why she had her mother come pick her up and bring her to the emergency department. [facility] Medical History Rheumatoid arteritis Hypothyroidism Diabetes type 2, controlled Allergy/AdvReac Type Severity Reaction Status Date / Time neomycin Allergy Mild Hives Verified 07/02/24 16:28 potato Allergy Mild Nausea Verified 01/14/24 21:03 Social History Smoking Status: Never smoker ROS ROS ED ROS Narrative Constitutional: No fever, no chills. HEENT: No sore throat. No neck pain. No loss of vision. No rhinorrhea. Cardiovascular: Positive chest pain radiating from back in between shoulder blades. No palpitations. No pedal edema. Respiratory: No cough, no shortness of breath. Abdominal: No abdominal pain. No nausea. No vomiting. Genitourinary: No dysuria. No hematuria. Musculoskeletal: No myalgias. No arthralgias. Neurologic: No headaches. No dizziness. No lightheadedness. Skin: No rash. No change in color. Psychiatric: No depression. No anxiety. EXAM Physical Exam Narrative Exam Narrative: Afebrile. Vital signs noted. HEENT: Normocephalic. Atraumatic. PERRL, EOMI. Neck soft and supple. No point tenderness or step off. Cardiovascular: Regular rate and rhythm. No murmurs, rubs, or gallops appreciated. Respiratory: No tachypnea. Lungs clear to auscultation bilaterally. Gastrointestinal: Abdomen soft, nontender, with normoactive bowel sounds. No rebound or guarding. Neurological: Awake. Alert. Nonfocal, nonlateralizing. Skin: No rash. Normal color. No pallor. Musculoskeletal: No pedal edema. Full range of motion extremities. No reproducible thoracic back pain. No point tenderness or step-off. Const Vital Signs: 07/02/24 16:28 07/02/24 16:29 07/02/24 17:08 Temperature 97 F L Temperature Source Temporal Pulse Rate 90 Respiratory Rate 17 Respiratory Effort Normal Non-Labored Blood Pressure 154/85 H Blood Pressure Mean 108 Pulse Ox 98 Oxygen Delivery Method Room Air Room Air 07/02/24 17:28 07/02/24 18:00 07/02/24 19:00 Temperature Temperature Source Pulse Rate 82 73 67 Respiratory Rate 16 10 L 15 Respiratory Effort Blood Pressure 121/88 H 132/66 H 131/82 H Blood Pressure Mean 99 88 98 Pulse Ox 98 98 100 Oxygen Delivery Method Room Air 07/02/24 20:00 Temperature 97.9 F Temperature Source Oral Pulse Rate 71 Respiratory Rate 22 H Respiratory Effort Blood Pressure 118/94 H Blood Pressure Mean 102 Pulse Ox 96 Oxygen Delivery Method Room Air MDM MDM MDM Narrative Medical decision making narrative: Differential diagnosis includes but not limited to aortic dissection versus ACS versus pulmonary embolism. She did have upper endoscopy performed today as well but I have low suspicion for esophageal perforation. Comprehensive workup was pursued. In order to rule out dissection CTA will be obtained to rule out pulmonary embolism as well. EKG was obtained and interpreted by myself independently at normal sinus rhythm at 75 bpm without ectopy or acute ST changes. No STEMI. I reviewed her laboratory work and she has normal white count of 7.4, hemoglobin 11.2 and hematocrit 34.4. Platelet count normal at 232. Electrolyte panel is grossly unremarkable. This is with exception of glucose of 124, she has a normal anion gap of 6. Initial high-sensitivity troponin is less than 3. Repeat at 2 hours is also less than 3 for at delta of 0. No think she is having cardiac pain and that she has been ruled out with biomarkers. I reviewed the radiology report of the CTA of the chest and there is no evidence of pulmonary embolism or dissection. They do comment on a possible lingual pneumonia, but I do not feel antibiotics are indicated. She is not short of breath, she has never fever or white count, no cough. Upon repeat examination, she states her pain is resolved. I feel she can be discharged safely home with follow-up to her primary care provider. Return instructions to the emergency department were reviewed. Disposition is discharged home in stable condition. History & Record Review Discussion w/independent historian: Patient Lab Data Attestation: I reviewed the patient's lab results. Labs: Laboratory Results - last 24 hr 07/02/24 07/02/24 16:40 19:38 WBC 7.4 RBC 4.02 L Hgb 11.2 L Hct 34.4 L MCV 85.6 MCH 27.9 MCHC 32.6 RDW Std Deviation 40.7 RDW Coeff of Sergio 13.2 Plt Count 232 MPV 9.6 Immature Gran % (Auto) 0.300 Neut % (Auto) 68.6 Lymph % (Auto) 21.1 Kendall % (Auto) 7.6 Eos % (Auto) 1.9 Baso % (Auto) 0.5 Absolute Neuts (auto) 5.0 Absolute Lymphs (auto) 1.55 Nucleated RBC % 0 Sodium 141 Potassium 3.7 Chloride 107 Carbon Dioxide 28.0 Anion Gap 6 BUN 9 Creatinine 0.88 Estim Creat Clear Calc 78.25 Est GFR (MDRD) Af Amer 87 Est GFR (MDRD) Non-Af 72 BUN/Creatinine Ratio 10.2 Glucose 124 H Calcium 9.3 Troponin I High Sens < 3 L < 3 L Radiography Diagnostic Testing: Clinical Impression(s) from Imaging Studies Chest CTA 07/02/24 17:08 IMPRESSION: Normal CTA chest examination, without a demonstrated pulmonary embolism or arterial dissection. Patchy infiltrate in the inferior lingula, likely pneumonia. Recommend short-term follow-up to resolution. Electronically Signed: Corey Dubois MD at 19:06 EDT Reading Location ID and State: [facility] / [place] Tel , Service support , Discharge Plan Triage Chief Complaint: Chest Pain ED Provider: Jay Camejo Dx/Rx/DC Orders Clinical Impression: Acute thoracic back pain, Chest pain Instructions: ED Back Pain (Acute or Chronic), ED Chest Pain, Uncertain Cause, ED Pain, Acute, Uncertain Cause Primary Care Provider: Shanique Bacon [employer] Referrals: Shanique Bacon NP, [employer] [Primary Care Provider] - 3-5 Days if not improving Activity Restrictions/Additional Instructions: Return with increased pain, new or worsening symptoms. Print Language: German Disposition Disposition: Home, Self Care
--- NOTE | 2024-07-02 17:12 | NURSING ---
NO OLD EKGS
--- NOTE | 2024-07-02 17:15 | EKG12_ITS ---
Test Reason : CP Blood Pressure : / mmHG Vent. Rate : 075 BPM Atrial Rate : 075 BPM P-R Int : 158 ms QRS Dur : 086 ms QT Int : 392 ms P-R-T Axes : 044 020 064 degrees QTc Int : 437 ms Normal sinus rhythm Normal ECG Confirmed by XANDER AREVALO, EVELINE ([id number]), editor house organ RONY MONSALVE ([id number]) on 07/06/2024 8:45:19 AM Referred By: Confirmed By:OLINDA TERRELL MD
[2024-07-02 17:20] LABS: Absolute Lymphocyte Count 1.55 X10^3/uL (0.83-4.51); Basophil# 0.04 X10^3/uL; Basophil% 0.5 % (0-1); Eosinophil# 0.14 X10^3/uL; Eosinophils% 1.9 % (0-5); Hematocrit 34.4 % (37-47); Hemoglobin 11.2 g/dL (12.0-15.0); Lymphocyte # 1.55 X10^3/ul (0.83-4.51); Lymphocyte % 21.1 % (19-41); Mean Corp Hgb Conc 32.6 g/dL (32-36); Mean Corpuscular Hgb 27.9 pg (27.0-32.0); Mean Corpuscular Volume 85.6 fL (81-99); Mean Platelet Vol. 9.6 fl (6.2-12.0); Monocyte# 0.56 X10^3/uL; Monocyte% 7.6 % (0-10); NRBC Flagged by Analyzer 0 % (0-5); Neutrophil # 5.04 X10^3/uL (2.7-7.7); Neutrophil % 68.6 % (47-70); Platelet Count 232 K/mm3 (150-450); RBC Distribution Width CV 13.2 % (11.6-14.6); RBC Distribution Width SD 40.7 fl (35.1-43.9); Red Blood Count 4.02 M/mm3 (4.2-5.4); White Blood Count 7.4 K/mm3 (4.4-11.0)
[2024-07-02 17:28] VITALS: BP 121/88; PULSE 82; RESP 16; O2SAT 98
[2024-07-02 17:36] LABS: Anion Gap 6 (5-15); BUN 9 mg/dL (7-18); BUN/Creat Ratio 10.2 RATIO (10-20); Calcium,Total 9.3 mg/dL (8.5-10.1); Chloride 107 mmol/L (98-107); Creatinine, Serum 0.88 mg/dL (0.55-1.02); EST Glomerular Filtration Rate 72 mL/min (>60); Est Glom Filt Rate - Afr Amer 87 mL/min (>60); Estimated Creatinine Clearance 78.25 ml/min; Glucose 124 mg/dL (74-106); Potassium 3.7 mmol/L (3.5-5.1); Sodium Level 141 mmol/L (136-145); Troponin-I HS (w/2H Reflex) < 3 pg/mL (3.0-54.0)
[2024-07-02 18:00] VITALS: BP 132/66; PULSE 73; RESP 10; O2SAT 98
[2024-07-02] MEDS: 0.9% Normal Saline (1000mL) 1,000 ML 999 ML IV (18:25)
[2024-07-02 19:00] VITALS: BP 131/82; PULSE 67; RESP 15; O2SAT 100
[2024-07-02 19:14] LABS: Reflex Troponin-HS? (from REC) Y
[2024-07-02 20:00] VITALS: BP 118/94; PULSE 71; RESP 22; TEMP 36.6; O2SAT 96
[2024-07-02 20:16] LABS: Troponin-I HS < 3 pg/mL (3.0-54.0)
[2024-07-02 20:42] VITALS: BP 133/104; PULSE 67; RESP 13; O2SAT 98
== END 2024-07-02 20:53 | disposition home or self-care (01) ==
PROVIDERS: Emergency Provider Emergency Medicine; PCP Nurse Practitioner Adult Health; Visit Provider Emergency Medicine
DX: M54.6 Pain in thoracic spine (principal); R07.9 Chest pain, unspecified
CPT/HCPCS: 71275; 80048; 84484; 85025; 93005; 96360; 99284; J7030; Q9967; A4216